=== PATIENT | male | born 1955 ===

== ENCOUNTER → 2020-02-25 10:59 | Outpatient (BNVA) | payer MEDICAID, SELFPAY | PROVIDERS: Visit Provider Orthopaedic Surgery | DX: M17.11 Unilateral primary osteoarthritis, right knee (principal) | CPT/HCPCS: 20610; 99212; J1040 ==

== ENCOUNTER → 2020-04-11 14:03 | Outpatient (BNVA) | payer MEDICAID, SELFPAY | PROVIDERS: Visit Provider Orthopaedic Surgery | DX: M17.11 Unilateral primary osteoarthritis, right knee (principal) | CPT/HCPCS: 99212; J1040 ==

== ENCOUNTER → 2020-07-19 13:43 | Outpatient (BNVA) | payer MEDICAID, SELFPAY | PROVIDERS: Visit Provider Orthopaedic Surgery | DX: M17.11 Unilateral primary osteoarthritis, right knee (principal) | CPT/HCPCS: 20610; J1040 ==

== ENCOUNTER 2020-12-07 13:51 | Outpatient (REF) | payer MEDICAID, SELFPAY ==
--- NOTE | ~2020-12-07 | XR_ITS ---
EXAMINATION: XR STANDING BILATERAL KNEES WITH 2 ADDITIONAL VIEWS, RIGHT CLINICAL INFORMATION: Right knee pain. COMPARISON: 02/27/2018 TECHNIQUE: Single standing view of both knees with 2 additional views of right knee. FINDINGS: Compared to the prior study there has been no interval change. Once again noted is narrowing of both medial compartments, right greater than left with narrowing of the lateral compartments as well with bilateral chondrocalcinosis with calcification in both the medial and lateral menisci. Degenerative changes are also seen at the patella femoral joint with narrowing and posterior osteophytes. XR/XR knee standing BI IMPRESSION: Unchanged tricompartmental degenerative changes.
--- NOTE | ~2020-12-07 | XR_ITS ---
EXAMINATION: XR STANDING BILATERAL KNEES WITH 2 ADDITIONAL VIEWS, RIGHT CLINICAL INFORMATION: Right knee pain. COMPARISON: 02/27/2018 TECHNIQUE: Single standing view of both knees with 2 additional views of right knee. FINDINGS: Compared to the prior study there has been no interval change. Once again noted is narrowing of both medial compartments, right greater than left with narrowing of the lateral compartments as well with bilateral chondrocalcinosis with calcification in both the medial and lateral menisci. Degenerative changes are also seen at the patella femoral joint with narrowing and posterior osteophytes. XR/XR knee RT 2V IMPRESSION: Unchanged tricompartmental degenerative changes.
== END 2020-12-07 13:52 | disposition home or self-care (01) ==
LOC: HO.HOSX 13:51
PROVIDERS: Visit Provider Physician Assistant
DX: M17.11 Unilateral primary osteoarthritis, right knee (principal)
CPT/HCPCS: 20610; 73560; 73565; 99212; J1040

== ENCOUNTER 2021-02-22 14:26 | Emergency (ER) | payer MEDICAID, SELFPAY ==
--- NOTE | ~2021-02-22 | XR_ITS ---
EXAMINATION: XR CHEST CLINICAL INFORMATION: Chest pain COMPARISON: None TECHNIQUE: Frontal view of the chest was obtained. FINDINGS: No significant abnormality is noted involving the heart, lungs, mediastinum, bony thorax or soft tissues. XR/XR chest 1V IMPRESSION: No acute disease.
[2021-02-22 14:39] VITALS: BP 144/67; PULSE 65; RESP 17; TEMP 36.8; O2SAT 96; BMI 30.5
--- NOTE | 2021-02-22 14:45 | ECG_ITS ---
Test Reason : CHEST PAIN Blood Pressure : / mmHG Vent. Rate : 063 BPM Atrial Rate : 063 BPM P-R Int : 138 ms QRS Dur : 078 ms QT Int : 386 ms P-R-T Axes : 024 029 038 degrees QTc Int : 395 ms Normal sinus rhythm Normal ECG No previous ECGs available Referred By: Generic ED Physician Electronically Signed By:NIESHA HOPE MD
[2021-02-22 15:29] LABS: MANUAL DIFF FLAG NO
[2021-02-22 15:30] LABS: Basophils Percent Auto 0.6 % (0-2); Eosinophils Absolute Auto 0.1 X10*3/uL (0.0-0.4); Hematocrit 41.5 % (42.0-52.0); Imm Gran Abs Auto 0.02 X10*3/uL (0.00-0.03); Imm Gran Pct Auto 0.3 % (0.0-0.4); Lymphocytes Absolute Auto 1.3 X10*3/uL (1.2-4.9); Lymphocytes Percent Auto 20.8 % (20-40); Mean Corpuscular HGB Conc 33.7 g/dl (31.0-36.0); Mean Corpuscular Hemoglobin 30.5 pg (27.0-33.0); Mean Corpuscular Volume 90.4 fL (80.0-98.0); Mean Platelet Volume 10.7 fL (9.4-12.4); Monocytes Absolute Auto 0.7 X10*3/uL (0.1-1.2); Neutrophils Absolute Auto 4.2 x10*3/uL (2.0-8.3); Neutrophils Percent Auto 65.3 % (45-73); Platelet Count 205 X10*3/uL (160-400); Red Blood Count 4.59 X10*6/uL (4.60-5.80); Red Cell Distribution Width 11.5 % (11.0-16.0); White Blood Count 6.4 X10*3/uL (4.8-10.8)
--- NOTE | 2021-02-22 15:41 | ED_ITS ---
HPI - Chest Pain General Chief Complaint: Chest Pain Stated Complaint: rt side upper back pain radiating to chest Time Seen by Provider: 02/22/21 15:30 Source: patient Mode of arrival: ambulatory Limitations: no limitations History of Present Illness HPI narrative: Patient comes emergency room complaining of right-sided chest pain and back pain for approximately 3 months. Patient states the pain is intermittent, worse with movement, nonradiating. 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 Patient states that he thinks it is musculoskeletal, but due to his age, he was concerned that he might be his heart. At this time, patient states that he is asymptomatic. Related Data Home Medications Medication Instructions Recorded Confirmed trazodone 50 mg tablet 50 mg PO BEDTIME PRN 02/25/20 ibuprofen 800 mg tablet 800 mg PO Q8H 04/11/20 Allergies Allergy/AdvReac Type Severity Reaction Status Date / Time No Known Allergies Allergy Verified 02/22/21 14:39 Review of Systems Review of Systems: Constitutional : No Weight loss, No Fever, No Chills, No Night Sweats, No Fatigue, No Malaise ENT/Mouth : No Hearing loss, No Ear Pain, No Nasal Congestion, No Sinus Pain, No Hoarseness, No sore throat, No Rhinorrhea, No Swallowing Difficulty Eyes: No Eye Pain, No Swelling, No Redness, No Foreign Body, No Discharge, No Vision Changes Cardiovascular : Complaining of right-sided Chest Pain, No SOB, No Dyspnea on Exertion, No Orthopnea, No Edema, No Palpitations Respiratory : No Cough, No Sputum, No Wheezing, No Smoke Exposure, No Dyspnea Gastrointestinal : No Nausea, No Vomiting, No Diarrhea, No Constipation, No abdominal Pain, No Hematochezia, No Melena Genitourinary : no irregular bleeding, No Dysuria, No Urinary Frequency, No Hematuria, No Urinary Incontinence, No Urgency, No Flank Pain, No Urinary Flow Changes, No Hesitancy Musculoskeletal : Complaining of upper left-sided back pain, No joint pain, No Myalgias, No Joint Swelling Skin : No Skin Lesions, No rash Neuro : No Weakness, No Numbness, No Paresthesias, No Loss of Consciousness, No Dizziness, No Headache Psych : No Anxiety/Panic, No Depression, No SI/HI/AH/VH, No Social Issues, Heme/Lymph: No Bruising, No Bleeding,No Lymphadenopathy Endocrine : No Polyuria, No Polydipsia, No Temperature Intolerance [facility] Past Medical History Medical History Localized osteoarthritis of left knee Primary localized osteoarthritis of right knee Rotator cuff impingement syndrome of left shoulder Rotator cuff impingement syndrome of right shoulder Family History Family History Father No problems noted. Mother No problems noted. Social History Social History Current occupational status: retired Current occupation: Right Handed Physical Exam Vital Signs: Vital Signs: Last Vital Signs Temp 98.2 F 02/22/21 14:39 Pulse 65 02/22/21 14:39 Resp 17 02/22/21 14:39 BP 144/67 H 02/22/21 14:39 Pulse Ox 96 02/22/21 14:39 Body Mass Index 30.5 Const: Other: Appearance: Alert. Oriented X3. No acute distress. Eyes: Pupils equal, round and reactive to light. ENT: Pharynx normal. Neck: Normal inspection. Neck supple. No lymph nodes noted. No crepitus CVS: Normal heart rate and rhythm. Pulses normal. Normal S1 and S2, reproducible chest pain to palpation Respiratory: No respiratory distress. Breath sounds normal. No Wheezing. No rales Abdomen: Soft and nontender. No rigidity. No distention. Back: Pain to palpation a around the scapular area, no cervical/thoracic/lumbar pain palpation Skin: Skin warm and dry. Normal skin color. Normal skin turgor. Extremities: No lower extremity edema. No lower extremity edema. No Lacerations. No Rash Neuro: Oriented X 3. No motor deficit. No sensory deficit. Moving all extermities. No slurred speech. Course Course Course Narrative: I discussed with the patient that he likely has musculoskeletal pain. Patient remains asymptomatic. Patient instructed to follow-up with his primary care physician. The patient keeps having chest pain, I would recommend a patient who scheduled an appointment with his PCP, will likely need a referral for a stress test MDM - Chest Pain Lab Data Result diagrams: 02/22/21 15:25 02/22/21 15:25 Labs: Lab Results 02/22/21 02/22/21 02/22/21 Range/Units 15:25 15:25 15:25 WBC 6.4 (4.8-10.8) X10*3/uL RBC 4.59 L (4.60-5.80) X10*6/uL Hgb 14.0 (14.0-18.0) g/dl Hct 41.5 L (42.0-52.0) % MCV 90.4 (80.0-98.0) fL MCH 30.5 (27.0-33.0) pg MCHC 33.7 (31.0-36.0) g/dl RDW 11.5 (11.0-16.0) % Plt Count 205 (160-400) X10*3/uL MPV 10.7 (9.4-12.4) fL Immature Gran % (Auto) 0.3 (0.0-0.4) % Neut % (Auto) 65.3 (45-73) % Lymph % (Auto) 20.8 (20-40) % [place] % (Auto) 11.0 (2-11) % Eos % (Auto) 2.0 (0-4) % Baso % (Auto) 0.6 (0-2) % Lymph # (Auto) 1.3 (1.2-4.9) X10*3/uL [place] # (Auto) 0.7 (0.1-1.2) X10*3/uL Eos # (Auto) 0.1 (0.0-0.4) X10*3/uL Baso # (Auto) 0.0 (0.0-0.2) X10*3/uL Abs Immat Gran (auto) 0.02 (0.00-0.03) X10*3/uL Absolute Neuts (auto) 4.2 (2.0-8.3) x10*3/uL Absolute Nucleated RBC 0.000 (0.0-0.012) X10*3/uL Nucleated RBC % (auto) 0.0 (0.0-0.2) /100WBC Sodium 140 (135-145) mmol/L Potassium 4.2 (3.3-5.1) mmol/L Chloride 107 (96-108) mmol/L Carbon Dioxide 27 (22-29) mmol/L Anion Gap 10 L (12-20) BUN 17 H (9-16) mg/dL Creatinine 1.06 (0.5-1.4) mg/dL Estim Creat Clear Calc 83.1 Estimated GFR > 60 Random Glucose 114 (60-115) mg/dL Calcium 9.0 (8.4-10.2) mg/dL Troponin I High Sens < 3.5 (<3.5-35.0) ng/L Discharge Plan Discharge Clinical Impression: Atypical chest pain Patient Disposition: Home, Self-Care Instructions: Chest Wall Pain (ED), Chest Pain (ED) Additional Instructions: Noted insert discharge
[2021-02-22 15:44] LABS: Anion Gap 10 (12-20); Blood Urea Nitrogen 17 mg/dL (9-16); Carbon Dioxide 27 mmol/L (22-29); Chloride 107 mmol/L (96-108); Creatinine Clr Calc Pharmacy 83.1; Estimated Glomerular Filt Rate > 60; Glucose Random 114 mg/dL (60-115); Potassium 4.2 mmol/L (3.3-5.1); Sodium 140 mmol/L (135-145)
[2021-02-22 15:51] LABS: Troponin-I High Sensitivity < 3.5 ng/L (<3.5-35.0)
[2021-02-22 16:00] VITALS: BP 157/72; PULSE 60; RESP 16
== END 2021-02-22 16:26 | disposition home or self-care (01) ==
LOC: HO.ED 16:23
PROVIDERS: Emergency Provider Emergency Medicine; PCP Internal Medicine
DX: R07.89 Other chest pain (principal)
CPT/HCPCS: 36415; 71045; 80048; 84484; 85025; 93005; 99284

== ENCOUNTER 2021-04-12 11:51 | Outpatient (REF) | payer MEDICAID, SELFPAY ==
[2021-04-12 13:51] LABS: Binax Now Covid-19 Ag Negative (Negative)
[2021-04-12 13:52] LABS: Binax Internal Control QC Valid; Binax Lot number: 9864
== END 2021-04-12 11:52 | disposition home or self-care (01) ==
LOC: HO.LAB 11:51
PROVIDERS: Visit Provider Internal Medicine
DX: Z20.822 Contact with and (suspected) exposure to COVID-19 (principal)
CPT/HCPCS: 36415; C9803

== ENCOUNTER 2021-05-23 17:00 | Outpatient (RCR) | payer MEDICAID, SELFPAY | END 2021-06-01 15:29 | disposition home or self-care (01) | LOC: HO.PT 17:00 | PROVIDERS: PCP Internal Medicine; Visit Provider Internal Medicine | DX: M53.3 Sacrococcygeal disorders, not elsewhere classified (principal) | CPT/HCPCS: 97110; 97161; 97535 ==

== ENCOUNTER 2021-08-31 09:33 | Emergency (ER) | payer MEDICAID, SELFPAY ==
[2021-08-31 09:35] VITALS: BP 163/65; PULSE 60; RESP 16; TEMP 36.8; O2SAT 93; BMI 30.7
[2021-08-31 10:13] VITALS: BP 152/82; PULSE 58; RESP 18; TEMP 36.9; O2SAT 94
--- NOTE | 2021-08-31 10:24 | ED_ITS ---
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 He reports that he is currently on another muscle relaxer that is not providing any symptomatic relief and he wants the baclofen that is why he came here. He denies any head injury, CO2 toxicity, dizziness, change in vision, fevers, neck pain/stiffness, trouble swallowing or breathing, chest pain or shortness of breath, radiation of the back pain, paresthesias, palpitations, dyspnea on exertion, orthopnea, nausea/vomiting/diarrhea constipation, black or bloody stools, hematuria, dysuria, recent travel or sick contacts, others with similar symptoms, recent falls, lower extremity edema or calf tenderness, rashes or any other symptoms complaints or concerns at this time. MD elicited complaint: back pain and back injury Pertinent past history: prior back pain Onset (ago): week(s) Timing: constant and progressively worsening Severity: moderate Similar Symptoms Previously: Yes Quality: aching, spasming and throbbing Location: right upper back (Scapular region) Radiation: none Exacerbating factors: movement Relieving factors: none Context: while lifting, turning/twisting and other (Wall hammering at work) Associated symptoms: denies other symptoms Work related injury: Yes Related Data Home Medications Medication Instructions Recorded Confirmed trazodone 50 mg tablet 50 mg PO BEDTIME PRN 02/25/20 ibuprofen 800 mg tablet 800 mg PO Q8H 04/11/20 Previous Rx's Medication Instructions Recorded baclofen 5 mg tablet 5 mg PO TID #10 tab 02/22/21 baclofen 5 mg tablet 5 mg PO TID #14 tab 08/31/21 naproxen 500 mg tablet 500 mg PO BID PRN #14 tab 08/31/21 Allergies Allergy/AdvReac Type Severity Reaction Status Date / Time No Known Allergies Allergy Verified 08/31/21 09:38 Review of Systems Review of Systems: Constitutional : No changes in activity, No lethargy, No recent prior head injury, No agitation, No increased fussiness ENT/Mouth : No Ear Pain, No Nasal discharge/drainage Eyes: No Eye Pain, No Swelling, No Redness, No Foreign Body, No Vision Changes Cardiovascular : No Chest Pain, No SOB Respiratory : No Cough Gastrointestinal : No Nausea, No Vomiting, No abdominal Pain Genitourinary : No Dysuria, No Hematuria, No Urinary Frequency, No Urinary Incontinence, No Urgency, No Flank Pain Musculoskeletal : + back pain/injury, No joint pain, No neck stiffness Skin : No lacerations Neuro : No unsteady gait, No Paresthesias, No Loss of Consciousness, No altered mental status, No dizziness, + Headache Denies past medical history of HIV, recent trauma, coagulopathy, recent spinal/ epidural procedure, new medication, URI symptoms, close contacts with similar symptoms, tick bite, or known CO2 exposure. Denies IVDU. Yes all other systems are reviewed and are negative PMFSH Past Medical History Attestation statement: The following information was validated with the patient. Medical History Localized osteoarthritis of left knee Primary localized osteoarthritis of right knee Rotator cuff impingement syndrome of left shoulder Rotator cuff impingement syndrome of right shoulder Family History Family History Father No problems noted. Mother No problems noted. Social History Social History Advance Directives: No Advance Directives Information Provided: No Current occupational status: retired Current occupation: Right Handed Physical Exam Vital Signs: Vital Signs: Last Vital Signs Temp 98.5 F 08/31/21 10:13 Pulse 58 08/31/21 10:13 Resp 18 08/31/21 10:13 BP 152/82 H 08/31/21 10:13 Pulse Ox 94 08/31/21 10:13 BMI result Body Mass Index 30.7 Vital signs have been reviewed as normal and appeared to be correct. Blood pressure 152/82. Heart rate normal. Respiration rate normal. Temperature normal. Oxygen saturation normal. Appearance: Alert. Oriented X3. No acute distress. Head: Normal external exam. Normocephalic. Atraumatic. Able to rotate head bilaterally. Eyes: PERRLA. EOMI. No nystagmus noted. Conjunctiva and sclera normal. Eyelids normal. Corneal reflex normal. ENT: EAC normal. TM's Normal. Hearing normal. Pharynx normal. Uvula midline. tongue midline. Moist mucous membranes. No trismus noted. No drooling noted. No muffled voice noted. Neck: Normal inspection. Neck supple. FROM. No adenopathy. Thyroid Normal. No meningeal signs. No neck mass noted. CVS: Normal heart rate and rhythm. Heart sound normal. No murmurs noted. Pulses normal throughout. Respiratory: No respiratory distress. Painless inspiration. Breath sounds normal. No wheezes/rales/rhonchi noted. Chest nontender. No accessory muscle usage noted or decreased air movement noted. Back: No CVA tenderness. Full range of motion noted. No obvious deformities, or edema. Mild para-spinal muscular tenderness at right scapular region/perithoracic. No mid spinal tenderness step-offs or deformities noted. Full ROM in back and lower extremities. 5/5 strength hip extension/flexion, abduction, adduction. Mild Lumbar pain with hip flexion against resistance. Straight leg raise test negative on right; Straight leg raise test negative on left; Reflexes normal ankle and knee bilaterally; EHL motor strength normal bilaterally. No rashes/lesion/induration/fluctuance or signs infection noted. Skin: Skin warm and dry. Normal skin color. Normal skin turgor. No rashes/lesions/lacerations noted. Extremities: Extremities exhibit normal range of motion. Extremities nontender. Able to shrug shoulders bilaterally and keep up against resistance. Neuro: Oriented X 3. No motor deficit. No sensory deficit. Reflexes normal. Moving all extremities. No focal motor deficits. Cranial nerves II-XI intact bilaterally. Facial strength normal. Normal cognition. Speech normal. Gait normal. Strength 5/5 throughout. No pronator drift. No tremor noted. No fasciculations noted. Muscle tone normal throughout. No asterixis noted. Nxxwhp-tt-omna test normal. Heel to joyner test normal. Tandem gait normal. Does not sway with eyes open. Romberg test negative. Rapid alternating movement upper extremity normal. Rapid alternating movement lower extremity normal. Hand drop from overhead-Mrs. face. No rigidity noted. NIHSS score 0. Course Course Course Narrative: - Patient afebrile, resting comfortably in no distress. Non-toxic appearing. Patient denies any recent trauma/injury to head. Neurological exam shows no deficits. BP WNL. Denies any changes in vision. Patient ambulates without difficulty. Given the history, and physical - most likely diagnosis: Migraine FELDMAN. Patient reports this feels like his normal migraine headaches therefore no imaging indicated at this time. Pt c likely muscular pain, but could be herniated disc. Neuro exam shows no deficits. Not c/w AAA/epidural abscess/d issection.No high risk Hx (Incont, fever, immunosupp, recent surgery/LP, coag, signif trauma, wt loss, puls mass, hx/o Ca, TB, or IVDU) to warrant MRI/CT today. Not c/w Pyelo/UTI/kidney stone/spinal fx. Not cauda equina syndrome. Imaging not currently indicated. DC c meds and f/u. Will d/c with migraine medicaiton and I also explained to the patient that he cannot take his other muscle relaxer with the baclofen and he understands and agrees with this plan and advised to follow - up with PCP. Patient demonstrated good understanding of signs and symptoms to return to ED for further testing should sx worsen. gradual onset FELDMAN. Pt states classic of previous migraine HAs. SAH: unlikely given gradual onset and similar to previous episodes Intracranial bleed: unlikely given neg trauma, neg anticoagulation Meningitis: unlikely given pt afebrile, neg stiff neck, no immune compromise. Exam without signs of meningismus Temporal arteritis: Unlikely given Neg jaw claudication, no temporal tenderness or nodularity on exam. Cerebral venous thrombosis: unlikely given no h/o hypercoaguable state, no chronic head/neck infection. MDM - Back Pain/Injury Medical Records Attestation: I reviewed the patient's medical records. Discharge Plan Discharge Clinical Impression: Headache, Muscle strain of right scapular region, Back strain Patient Disposition: Home, Self-Care Instructions: Muscle Strain (DC), General Headache (ED) Additional Instructions: You are currently on Tizanidine I explained to you that you cannot take this medication with baclofen because they do the same thing they are both muscle relaxers you can overdose if you take both medications at the same time therefore you reported that the Tizanidine was not helping your muscle strain and are requesting baclofen you cannot take both medications at the same time therefore from giving you baclofen today you need to take this alone not with TIZANIDINE! Prescriptions: New baclofen 5 mg tablet 5 mg PO TID Qty: 14 0RF naproxen 500 mg tablet 500 mg PO BID PRN (Reason: pain) Qty: 14 0RF No Action baclofen 5 mg tablet 5 mg PO TID Qty: 10 0RF Referrals: Ernesto Diallo MD [Primary Care Provider] - 2 days
== END 2021-08-31 10:41 | disposition home or self-care (01) ==
PROVIDERS: Emergency Provider Emergency Medicine Emergency Medical Services; PCP Internal Medicine
DX: S29.012A Strain of muscle and tendon of back wall of thorax, initial encounter (principal); S46.811A Strain of other muscles, fascia and tendons at shoulder and upper arm level, right arm, initial encounter; R51.9 Headache, unspecified; X50.3XXA Overexertion from repetitive movements, initial encounter; Y93.89 Activity, other specified; Y92.9 Unspecified place or not applicable; Y99.0 Civilian activity done for income or pay
CPT/HCPCS: 99283

== ENCOUNTER → 2021-12-28 11:06 | Outpatient (BNVA) | payer MEDICAID, SELFPAY | PROVIDERS: PCP Internal Medicine; Visit Provider Physician Assistant | DX: M17.11 Unilateral primary osteoarthritis, right knee (principal) | CPT/HCPCS: 20610; 99212; J1040 ==

== ENCOUNTER → 2022-01-25 13:46 | Outpatient (BNVA) | payer MEDICAID, SELFPAY | PROVIDERS: PCP Internal Medicine; Visit Provider Physician Assistant | DX: M77.8 Other enthesopathies, not elsewhere classified (principal) | CPT/HCPCS: 99212 ==

== ENCOUNTER 2023-02-06 12:39 | Outpatient (AMB) | payer MEDICAID, SELFPAY ==
--- NOTE | 2023-02-06 12:46 | MHC.OFFVIS ---
Intake Vital Signs 02/06/23 12:50 Height 5 ft 10 in Weight 216 lb BMI 31.0 Intake Visit Reasons: Ov- B/L knee pain Intake Note: Demario shay 67 year old male presents today for a follow up of bilateral knee pain, last right knee injection 12/28/21. Patient reports last injection to right knee provided relief for 4 months. Currently he has mild pain and is requesting to repeat injection. Allergies No Known Allergies Allergy (Verified 02/06/23 12:52) HPI Ov- B/L knee pain HPI Details 67-year-old male who returns to the office today for a follow-up of bilateral knee pain. He currently states he has mild pain in his right as well as left knee. He had his last right knee injection on 12/28/22 which provided him relief for about 4 months. He would like to repeat the injection. He does not have a history of diabetes. FORMERLY [facility], [facility]–1983 Medical History Localized osteoarthritis of left knee Primary localized osteoarthritis of right knee Rotator cuff impingement syndrome of left shoulder Rotator cuff impingement syndrome of right shoulder Family History Father No problems noted. Mother No problems noted. Social History Current occupational status: retired Current occupation: Right Handed Review of Systems Const All systems reviewed & are unremarkable except as noted in HPI and below Physical Exam Vital Signs: BMI result Body Mass Index 31.0 Extrem Other: Bilateral knee: Skin intact, no erythema or joint effusion. Tenderness along the medial and lateral joint line. Full ROM with crepitus. Negative James?s. No ligamentous laxity. NVI. Office Procedures Joint Injection/Drain Joint Injection/Drain Primary Site: right knee Secondary Site: left knee Prep: site was prepped using aseptic technique, ethochloride spray was applied and injection warnings given Injected: 80 mg of, DepoMedrol, with 8 mL of and 1% plain lidocaine Approach Used: anterolateral Procedure: The patient tolerated the procedure well and there was some relief with the local anesthesia Coding 94730 - Glenohumeral/Tronchanteric Bursa/Intraarticular Procedure code (CPT) selection complete Results Reviewed Results Reviewed: 02/06/23 12:58 Lidocaine HCl 2 % MPF [Xylocaine 2 % MPF] 5 ml .ROUTE .STK-MED ONE 02/06/23 12:59 methylPREDNISolone acetate [DEPO-MedroL] 80 mg .ROUTE .STK-MED ONE Assessment & Plan Assessment & Plan (1) Primary localized osteoarthritis of right knee: Code(s): M17.11 - Unilateral primary osteoarthritis, right knee (2) Osteoarthritis of left knee: Code(s): M17.12 - Unilateral primary osteoarthritis, left knee Qualifiers: Osteoarthritis type: primary Qualified Code(s): M17.12 - Unilateral primary osteoarthritis, left knee Plan We discussed options today which include steroid injection. They did consent to move forward with the bilateral knee injection, which was tolerated well. I recommended rest, ice and elevation and OTC anti-inflammatories PRN for discomfort. If symptoms persist or worsens over the next 6-8 weeks, patient will contact the office, otherwise follow-up as needed. Patient Instructions: Scribed for Lisa Al PA-C, by Michael Davis curator medical [employer], on 02/06/2023. I, Lisa Al PA-C, have personally reviewed and agree with the information entered by the scribe. Coding Level of Care Code Est Pt Level 3 (79991) Diagnoses Primary localized osteoarthritis of right knee M17.11 Primary osteoarthritis of left knee M17.12 Osteoarthritis type: primary CPT Codes Coding - Joint 7: 39192 - Glenohumeral/Tronchanteric Bursa/Intraarticular ([id number])
[2023-02-06 12:50] VITALS: BMI 31.0
== END 2023-02-06 13:18 | disposition home or self-care (01) ==
PROVIDERS: PCP Internal Medicine; Visit Provider Physician Assistant
DX: M17.0 Bilateral primary osteoarthritis of knee (principal)
CPT/HCPCS: 20610

== ENCOUNTER → 2023-02-06 12:39 | Outpatient (BNVA) | payer OTHER, MEDICAID, SELFPAY | PROVIDERS: PCP Internal Medicine; Visit Provider Physician Assistant | DX: M17.0 Bilateral primary osteoarthritis of knee (principal) | CPT/HCPCS: 20610; J1040 ==

== ENCOUNTER 2023-09-29 09:03 | Outpatient (REF) | payer OTHER, MEDICAID, SELFPAY ==
[2023-09-29 14:57] LABS: MANUAL DIFF FLAG NO
[2023-09-29 14:59] LABS: Basophils Absolute Auto 0.1 X10*3/uL (0.0-0.2); Basophils Percent Auto 0.9 % (0-2); Eosinophils Absolute Auto 0.3 X10*3/uL (0.0-0.4); Eosinophils Percent Auto 5.5 % (0-4); Hematocrit 45.6 % (42.0-52.0); Hemoglobin 15.3 g/dl (14.0-18.0); Imm Gran Abs Auto 0.04 X10*3/uL (0.00-0.03); Imm Gran Pct Auto 0.7 % (0.0-0.4); Lymphocytes Absolute Auto 1.6 X10*3/uL (1.2-4.9); Lymphocytes Percent Auto 27.9 % (20-40); Mean Corpuscular HGB Conc 33.6 g/dl (31.0-36.0); Mean Corpuscular Hemoglobin 30.2 pg (27.0-33.0); Mean Corpuscular Volume 90.1 fL (80.0-98.0); Mean Platelet Volume 11.1 fL (9.4-12.4); Monocytes Absolute Auto 0.7 X10*3/uL (0.1-1.2); Monocytes Percent Auto 12.8 % (2-11); Neutrophils Absolute Auto 2.9 x10*3/uL (2.0-8.3); Neutrophils Percent Auto 52.2 % (45-73); Platelet Count 236 X10*3/uL (160-400); Red Blood Count 5.06 X10*6/uL (4.60-5.80); Red Cell Distribution Width 11.5 % (11.0-16.0); White Blood Count 5.6 X10*3/uL (4.8-10.8)
[2023-09-29 15:34] LABS: Alanine Aminotransferase 38 U/L (0-40); Albumin Level 4.2 g/dL (3.5-5.0); Alkaline Phosphatase 61 U/L (39-117); Anion Gap 14 (12-20); Aspartate Amino Transferase 26 U/L (5-37); Blood Urea Nitrogen 18 mg/dL (9-16); Calcium 9.6 mg/dL (8.4-10.2); Carbon Dioxide 25 mmol/L (22-29); Chloride 105 mmol/L (96-108); Cholesterol 182 mg/dL (<200); Estimated Glomerular Filt Rate > 60; Glucose Random 84 mg/dL (60-115); HDL Cholesterol 41 mg/dL (>40); LDL Cholesterol Calculated 129 mg/dL (<100); Potassium 3.8 mmol/L (3.3-5.1); Sodium 140 mmol/L (135-145); Total Protein 7.6 g/dL (6.5-8.0); Triglycerides 62 mg/dL (<150)
[2023-09-29 15:50] LABS: TSH reflex Free T4 1.46 uIU/mL (0.32-4.0)
[2023-10-06 20:38] LABS: Testosterone, Free 40.7 pg/mL (35.0-155.0); Testosterone, Total 297 ng/dL (250-1100)
== END 2023-09-29 09:04 | disposition home or self-care (01) ==
LOC: HO.CHCLDS 09:03
PROVIDERS: Visit Provider Internal Medicine
DX: M54.50 Low back pain, unspecified (principal); G89.29 Other chronic pain; I10 Essential (primary) hypertension
CPT/HCPCS: 36415; 80053; 80061; 84402; 84403; 84443; 85025

== ENCOUNTER 2023-10-17 09:08 | Outpatient (AMB) | payer OTHER, MEDICAID, SELFPAY ==
--- NOTE | 2023-10-17 09:20 | A.OFFVIS_ITS ---
Vital Signs 10/17/23 09:23 Height 5 ft 10 in Weight 210 lb BMI 30.1 Intake Visit Reasons: b/l knee inj last inj: 02/06/23 Intake Note: Demario is a 68 year old male who presents today for bilateral knee injections. Last injections: 02/06/23. Patient reports he had relief all the way up to about a month ago with his last cortisone injections. Today he would like to repeat bilateral knee injections. Allergies No Known Allergies Allergy (Verified 10/17/23 09:22) Medication List - Last Reconciled 10/17/23 by Lisa Al PA-C acetaminophen ER (Mapap Arthritis Pain) 650 mg PO Q8H PRN baclofen 5 mg PO TID baclofen 5 mg PO TID baclofen 10 mg PO TID diclofenac sodium 1% 2 grams topical BID hydrochlorothiazide 12.5 mg PO DAILY ibuprofen 800 mg PO Q8H naproxen 500 mg PO BID PRN tizanidine 4 mg PO ONCE trazodone 50 mg PO BEDTIME PRN HPI HPI b/l knee inj last inj: 02/06/23: Details: 68-year-old male who returns to the office today for a follow-up of bilateral knee pain. He had his last injections on 02/06/23 which provided him relief until a month ago. He would like to repeat the injections today. [facility] Medical History Localized osteoarthritis of left knee Primary localized osteoarthritis of right knee Rotator cuff impingement syndrome of left shoulder Rotator cuff impingement syndrome of right shoulder Family History Father No problems noted. Mother No problems noted. Social History (System 08/29/23 @ 09:21 by Cindy Huddleston) Current occupational status: retired Current occupation: Right Handed Review of Systems Const All systems reviewed & are unremarkable except as noted in HPI and below Physical Exam Vital Signs: BMI result Body Mass Index 30.1 Extrem Other: Bilateral knee: Skin intact, no erythema or joint effusion. Tenderness along the medial and lateral joint line. Full ROM with crepitus. Negative James?s. No ligamentous laxity. NVI. Office Procedures Joint Injection/Drain Joint Injection/Drain Primary Site: right knee Secondary Site: left knee Prep: site was prepped using aseptic technique, ethochloride spray was applied and injection warnings given Injected: 80 mg of, DepoMedrol, with 8 mL of, 1% plain lidocaine and in the joint Approach Used: anterolateral Procedure: The patient tolerated the procedure well and there was some relief with the local anesthesia Coding 17356 - Glenohumeral/Tronchanteric Bursa/Intraarticular Procedure code (CPT) selection complete Assessment & Plan Assessment & Plan (1) Primary localized osteoarthritis of right knee: Code(s): M17.11 - Unilateral primary osteoarthritis, right knee Category: Medical (2) Osteoarthritis of left knee: Code(s): M17.12 - Unilateral primary osteoarthritis, left knee Category: Medical Qualifiers: Osteoarthritis type: primary Qualified Code(s): M17.12 - Unilateral primary osteoarthritis, left knee Plan We discussed options today, which include steroid injection. The patient did consent to move forward with the bilateral knee injection, which was tolerated well. I recommended rest, ice, and elevation and OTC anti-inflammatories as needed for discomfort. If symptoms persist or worsen over the next 6-8 weeks ?, patient will contact the office, otherwise follow-up as needed. ? Patient Instructions: Scribed for Lisa Al PA-C, by Mithc Rivas nuclear medicine medical director, on 10/17/2023 at 9:15 AM EST.? I, Lisa Al PA-C, have personally reviewed and agree with the information entered by the scribe. Coding Level of Care Code Est Pt Level 3 (05360) Diagnoses Primary localized osteoarthritis of right knee M17.11 Primary osteoarthritis of left knee M17.12 Osteoarthritis type: primary CPT Codes Coding - Joint 7: 44204 - Glenohumeral/Tronchanteric Bursa/Intraarticular ([id number])
[2023-10-17 09:23] VITALS: BMI 30.1
== END 2023-10-17 09:29 | disposition home or self-care (01) ==
PROVIDERS: PCP Internal Medicine; Visit Provider Physician Assistant
DX: M17.0 Bilateral primary osteoarthritis of knee (principal); M17.12 Unilateral primary osteoarthritis, left knee
CPT/HCPCS: 20610; 99213

== ENCOUNTER → 2023-10-17 09:08 | Outpatient (BNVA) | payer OTHER, MEDICAID, SELFPAY | PROVIDERS: PCP Internal Medicine; Visit Provider Physician Assistant | DX: M17.0 Bilateral primary osteoarthritis of knee (principal) | CPT/HCPCS: 20610; 99212; J1010 ==

== ENCOUNTER 2024-01-13 15:16 | Emergency (ER) | payer OTHER, MEDICAID, SELFPAY ==
--- NOTE | ~2024-01-13 | XR_ITS ---
EXAMINATION: XR LUMBOSACRAL SPINE CLINICAL INFORMATION: Pain COMPARISON: Number 10/01/2014 TECHNIQUE: Three views of the lumbosacral spine. FINDINGS: Mild degenerative changes are present at all levels with some minimal narrowing and some endplate osteophytes. Most narrowing is present at L3-L4 and L4-L5. When comparison is made to the 02/17/2015 study, there is been some mild progression of disease. XR/XR lumbar spine 2-3V IMPRESSION: Mild degenerative changes in the lumbar spine with some mild progression when compared to 2014. Electronically signed by: Sivakumar Smith MD 01/13/2024 04:58 PM EDT
[2024-01-13 15:28] VITALS: BP 132/71; PULSE 85; RESP 18; TEMP 36.3; O2SAT 94; BMI 30.6
--- NOTE | 2024-01-13 15:30 | ED_ITS ---
HPI - General Adult General Chief complaint: Back Pain/Injury Stated complaint: Back pain Time Seen by Provider: 01/13/24 19:48 Source: patient Mode of arrival: ambulatory Limitations: no limitations History of Present Illness HPI narrative: Patient is a 68-year-old male presents emergency department for evaluation of diffuse lower back pain left lower back worse than right. At times the buttock. Has a history as ongoing back pain over the past 3 years. 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 Believes he maintains good body mechanics, but over the past week has pain has increased. He was seen recently by his primary care doctor who has ordered for an outpatient MRI he is just waiting for this to be scheduled. He continues to use Percocet, muscle relaxers, and Lidoderm patches with some relief. He has done physical therapy in the past with some improvement in pain as well. 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 Denies fevers, chills, burning with micturition, urinary frequency/urgency/hesitancy, bladder or bowel dysfunction, numbness or tingling of the perineum or bilateral legs. Denies any recent surgical procedures, any known immune compromising conditions, personal history of cancer, or IV drug usage. Related Data Home Medications ?Medication ?Instructions ?Recorded ?Confirmed trazodone 50 mg tablet 50 mg PO BEDTIME PRN 02/25/20 10/17/23 ibuprofen 800 mg tablet 800 mg PO Q8H 04/11/20 10/17/23 acetaminophen 650 mg 650 mg PO Q8H PRN 12/28/21 10/17/23 tablet,extended release (Mapap Arthritis Pain) baclofen 10 mg tablet 10 mg PO TID 12/28/21 10/17/23 diclofenac sodium 1 % topical gel 2 g topical BID 12/28/21 10/17/23 hydrochlorothiazide 12.5 mg tablet 12.5 mg PO DAILY 12/28/21 10/17/23 tizanidine 4 mg tablet 4 mg PO ONCE 12/28/21 10/17/23 Previous Rx's ?Medication ?Instructions ?Recorded baclofen 5 mg tablet 5 mg PO TID #10 tabs 02/22/21 baclofen 5 mg tablet 5 mg PO TID back pain #14 tabs 08/31/21 naproxen 500 mg tablet 500 mg PO BID PRN pain #14 tabs 08/31/21 Allergies Allergy/AdvReac Type Severity Reaction Status Date / Time No Known Allergies Allergy Verified 01/13/24 15:30 Review of Systems Review of Systems: Yes all other systems are reviewed and are negative [facility] Past Medical History Attestation statement: The following information was validated with the patient. Source: old records reviewed Medical History Rotator cuff impingement syndrome of right shoulder Rotator cuff impingement syndrome of left shoulder Localized osteoarthritis of left knee Primary localized osteoarthritis of right knee Family History Family History Father No problems noted. Mother No problems noted. Social History Social History (System 08/29/23 @ 09:21 by Cindy Huddleston) Smoked in Last 30 Days: No Use of substances other than those prescribed or required for medical reasons: No Advance Directives: No Advance Directives Information Provided: No Current occupational status: retired Current occupation: Right Handed Physical Exam ED Vital Signs: Vital Signs - 24 hr 01/13/24 15:28 01/13/24 20:14 01/13/24 21:01 Temperature 97.3 F 97.5 F 97.5 F Pulse Rate 85 77 77 Respiratory Rate 18 18 18 Blood Pressure 132/71 134/70 134/70 Pulse Oximetry 94 95 95 Oxygen Delivery Method Room Air Room Air Room Air BMI result Body Mass Index 30.6 Appearance: Alert.?Oriented to person, place and time. No acute distress.?Normal affect. Eyes: Pupils equal, round and reactive to light.? ENT: Pharynx normal.?? Neck: Normal inspection.? Neck supple.?? CVS: Heart sounds normal. Normal heart rate and rhythm.? Pulses normal; bilateral radial pulses 2+, bilateral posterior tibial/dorsalis pedis pulses 2+.? Respiratory: No respiratory distress.? Lung sounds clear to auscultation bilaterally?? Abdomen: Soft and non-tender. Normoactive bowel sounds. No pulsatile mass.?? Skin: Skin warm and dry.? Normal skin color.? Normal skin turgor.?? Extremities: No lower extremity edema.? No calf ttp? Back: + mild paraspinal muscular tenderness from lumbar region to coccyx. No CVA tenderness. No midline spinal tenderness, step-off's, or deformity. Full ROM intact in bilateral lower extremities. Straight leg test negative on right; Straight leg test negative on left. No rashes, lesions, areas of induration or fluctuance, or signs of infection noted., Neuro: Moves all extremities spontaneously. 5/5 strength in hip extension/flexion, abduction, adduction. Sensation to light touch intact bilaterally. Patellar and Achilles reflex 2+ bilaterally. No ataxia, gait normal and steady.. No focal neuro deficits. Course Course Course Narrative: RME, this is a rapid medical exam performed by Tani Max please refer to primary provider for complete H&P- 68-year-old male presents for evaluation of lower back pain that has been present for last few months but worse over the last few days. Plan for lumbar spine x-ray. No numbness, tingling, weakness. Medical Decision Making Medical Decision Making MDM Narrative: Patient is a 68-year-old male presents emergency department for evaluation of acute on chronic lower back pain, no obvious precipitating injury but he does do some lifting for work as per HPI. He has no midline lumbar spine tenderness, step-offs, or deformities. Overall he appears well, nontoxic, afebrile. Is ambulatory with a steady gait. Pain is most consistent with muscular pain, although cannot completely exclude herniated disc he is pending an outpatient MRI. On neurological exam there are no deficits. Not consistent with spinal fracture, spinal infection, epidural abscess, AAA, epidural abscess, or dissection. No high risk past medical history including incontinence, fever, immunosuppression, recent surgery or lumbar puncture, coagulopathy, significant trauma, recent unintentional weight loss, pulsatile mass, history of cancer, history of TB, history of IV drug use that would warrant emergent MRI or CT. Not consistent with pyelonephritis, urinary tract infection, renal calculi, appendicitis, diverticulitis. On exam no concern for cauda equina syndrome. Plan for discharge home with or note, continued use of Percocet/muscle relaxer/Lidoderm patch as previously prescribed to him, and follow-up with primary care provider, and patient agreed with plan. Differential Diagnosis Differential Diagnoses: The differential diagnosis associated with the presentation includes ( see narrative above) Admission/Observation Consideration of admission/observation: Escalation of care including admission/observation considered ( see narrative above) Radiology Impression Discussion of test interpretation with radiology: I have reviewed the radiologist's reading. Radiologist Impression: XR/XR lumbar spine 2-3V IMPRESSION: Mild degenerative changes in the lumbar spine with some mild progression when compared to 2015. Independent Historian Clinical information obtained from an independent historian. History obtained from or confirmed by: Spouse External Record Review External record reviewed: Outpatient record Prescription Management I considered prescription management with: Pain Medication Discharge Plan Discharge Clinical Impression: Strain of lumbar region Patient Disposition: Home, Self-Care Instructions: Low Back Strain (ED), Lower Back Exercises (ED) Additional Instructions: As discussed continue taking your medications as prescribed including the Percocet in the muscle relaxer. You may also use the Lidoderm patches. It is very important that you follow-up with your primary care doctor and have the patient done as this will be helpful for determining if there is specific injury to your swelling and/or require surgical intervention. They mass or consider another course of physical therapy as that has been helpful for you in the past. You may return to emergency department any concerns. Prescriptions: No Action baclofen 5 mg tablet 5 mg PO TID Qty: 10 0RF baclofen 5 mg tablet 5 mg PO TID Qty: 14 0RF naproxen 500 mg tablet 500 mg PO BID PRN (Reason: pain) Qty: 14 0RF trazodone 50 mg tablet 50 mg PO BEDTIME PRN ibuprofen 800 mg tablet 800 mg PO Q8H hydrochlorothiazide 12.5 mg tablet 12.5 mg PO DAILY acetaminophen [Mapap Arthritis Pain] 650 mg tablet extended release 650 mg PO Q8H PRN baclofen 10 mg tablet 10 mg PO TID tizanidine 4 mg tablet 4 mg PO ONCE diclofenac sodium 1 % gel 2 g topical BID Referrals: Ernesto Diallo MD [Primary Care Provider] - Stand Alone Forms: Work/School Release Interventions: ED Discharge Assessment Last Done: 01/13/24 21:01 Discharge Date/Time: 01/13/24 21:01 Print Language: Bulgarian
[2024-01-13 20:14] VITALS: BP 134/70; PULSE 77; RESP 18; TEMP 36.4; O2SAT 95
--- NOTE | 2024-01-13 20:45 | PC.NURSE ---
Ben SAUSAGE SMOKER at bedside for evaluation of patient.
[2024-01-13 21:01] VITALS: BP 134/70; PULSE 77; RESP 18; TEMP 36.4; O2SAT 95
== END 2024-01-13 21:01 | disposition home or self-care (01) ==
PROVIDERS: Emergency Provider Internal Medicine; PCP Internal Medicine
DX: S39.012A Strain of muscle, fascia and tendon of lower back, initial encounter (principal); X50.0XXA Overexertion from strenuous movement or load, initial encounter; Y93.89 Activity, other specified; Y92.9 Unspecified place or not applicable; Y99.0 Civilian activity done for income or pay
CPT/HCPCS: 72100; 99283; 99284

== ENCOUNTER 2024-02-23 11:44 | Outpatient (REF) | payer OTHER, SELFPAY | END 2024-02-23 11:45 | disposition home or self-care (01) | LOC: HO.HOSX 11:44 | PROVIDERS: PCP Internal Medicine; Visit Provider Physician Assistant | DX: M25.562 Pain in left knee (principal); M17.11 Unilateral primary osteoarthritis, right knee; M17.12 Unilateral primary osteoarthritis, left knee | CPT/HCPCS: 20610; 73562; 99212; J1010; J2003 ==

== ENCOUNTER 2024-02-23 11:44 | Outpatient (AMB) | payer OTHER, SELFPAY ==
[2024-02-23 11:51] VITALS: BMI 30.6
--- NOTE | 2024-02-23 11:51 | MHC.OFFVIS ---
Vital Signs 02/23/24 11:51 Height 5 ft 10 in Weight 213 lb BMI 30.6 Intake Visit Reasons: OV b/l knee inj last inj: 10/17/23 Intake Note: Michele 68 year old male who presents today for a follow up of bilateral knee OA, last injection 10/17/23. Patient reports last injection did not provide him as much relief as it has in the past, states helped for about 4 months. He would like to repeat injections. Allergies No Known Allergies Allergy (Verified 01/13/24 15:30) Medication List - Last Reconciled 02/23/24 by Lisa Al PA-C acetaminophen ER (Mapap Arthritis Pain) 650 mg PO Q8H PRN baclofen 5 mg PO TID baclofen 5 mg PO TID baclofen 10 mg PO TID diclofenac sodium 1% 2 grams topical BID hydrochlorothiazide 12.5 mg PO DAILY ibuprofen 800 mg PO Q8H naproxen 500 mg PO BID PRN tizanidine 4 mg PO ONCE trazodone 50 mg PO BEDTIME PRN HPI HPI OV b/l knee inj last inj: 10/17/23: Details: 68-year-old male who returns to the office today for a follow-up of bilateral knee pain. He had his last injection on 10/17/23 which provided him relief for about 4 months. He would like to repeat the injection. [facility] Medical History Rotator cuff impingement syndrome of right shoulder Rotator cuff impingement syndrome of left shoulder Localized osteoarthritis of left knee Primary localized osteoarthritis of right knee Family History (Reviewed 01/25/22 @ 14:05 by Vanessa Ruiz [facility]) Father No problems noted. Mother No problems noted. Social History (System 08/29/23 @ 09:21 by Cindy Huddleston) Current occupational status: retired Current occupation: Right Handed Review of Systems Const All systems reviewed & are unremarkable except as noted in HPI and below Physical Exam Vital Signs: BMI result Body Mass Index 30.6 Extrem Other: Bilateral knee: Skin intact, no erythema or joint effusion. Tenderness along the medial and lateral joint line. Full ROM with crepitus. Negative James?s. No ligamentous laxity. NVI. Office Procedures AMB Joint Injection/Aspiration Joint Injection/Aspiration Primary Site: right knee Secondary Site: left knee Prep: site was prepped using aseptic technique, ethochloride spray was applied and injection warnings given Injected: 80 mg of, DepoMedrol, with 8 mL of, 1% plain lidocaine and in the joint Approach Used: anterolateral Procedure: The patient tolerated the procedure well and there was some relief with the local anesthesia Coding 34019 - Glenohumeral/Tronchanteric Bursa/Intraarticular Procedure code (CPT) selection complete Assessment & Plan Assessment & Plan (1) Primary localized osteoarthritis of right knee: Code(s): M17.11 - Unilateral primary osteoarthritis, right knee Category: Medical (2) Osteoarthritis of left knee: Code(s): M17.12 - Unilateral primary osteoarthritis, left knee Category: Medical Qualifiers: Osteoarthritis type: primary Qualified Code(s): M17.12 - Unilateral primary osteoarthritis, left knee Plan We discussed options today, which include steroid injection. The patient did consent to move forward with the bilateral knee injection, which was tolerated well. I recommended rest, ice, and elevation and OTC anti-inflammatories as needed for discomfort. If symptoms persist or worsens over the next 6-8 weeks, patient will contact the office, otherwise follow-up as needed. Orders: Orders XR knee RT 3V Today M17.11 - Unilateral primary osteoarthritis, right knee XR knee LT 3V Today M25.562 - Pain in left knee Patient Instructions: Scribed for Lisa Al PA-C, by Mitch Rivas director of medical staff services, on 02/23/2024 at 11:45 AM EST.? I, Lisa Al PA-C, have personally reviewed and agree with the information entered by the scribe. Coding Level of Care Code Est Pt Level 3 (46027) Complex EM visit Add On G2211 Diagnoses Primary localized osteoarthritis of right knee M17.11 Primary osteoarthritis of left knee M17.12 Osteoarthritis type: primary CPT Codes Coding - Joint 7: 53464 - Glenohumeral/Tronchanteric Bursa/Intraarticular ([id number])
== END 2024-02-23 12:33 | disposition home or self-care (01) ==
PROVIDERS: PCP Internal Medicine; Visit Provider Physician Assistant
DX: M17.0 Bilateral primary osteoarthritis of knee (principal)
CPT/HCPCS: 20610; 99213

== ENCOUNTER 2024-11-01 10:00 | Outpatient (REF) | payer OTHER, SELFPAY ==
--- OUTSIDE RECORDS SUMMARY | 2024-11-01 10:46 | XMS_ITS | Encounter Summary ---
Author Organization [employer] Address [address] [place] [address] Care Team Providers Care Welfare Adviser Name Role Phone Ernesto Diallo MD Primary Care Provider [phone] Reason for Visit * Reason Comments Med Refill Encounter Details Date Type Department Care Team ([facility] st Contact Info) Description 05/12/2024 Refill [facility] MED & PEDS [address] [place], [place] [phone] Ernesto Diallo MD [address] [place] [address] Primary insomnia Social History Tobacco Use Types Packs/Day Years Used Date Smoking Tobacco: Former Cigarettes Passive Smoke Exposure: Never Smokeless Tobacco: Never Alcohol Use Standard Drinks/Week Comments Never 0 (1 standard drink = 0.6 oz pur e alcohol) Depression Answer Date Recorded Patient Health Questionnaire-9 Score 0 06/04/2022 Housing Stability Answer Date Recorded What is your housing situation today? I have marina thomson 01/27/[address] you li ve. Do you have problems with any of the following? None of the above 01/27/2023 Food Insecurity Answer Date Recorded Within the past 12 months, y ou worried that your food would run out before you got money to buy more: Never True 01/27/2023 Within the past 12 months,th e food you bought just didn't last and you didn't have enough money to get more: Never True Transportation Answer Date Recorded In the past 12 months, has l ack of transportation kept you from medical appts, meetings, work or from getting things needed for daily living? No 01/27/2023 Utilities Answer Date Recorded In the past 12 months, has t he electric, gas, oil or water company threatened to shut off services in your home? No 01/27/2023 Depression Answer Date Recorded Patient Health Questionnaire-2 Score 0 06/04/2022 Sex and Gender Information Value Date Recorded Sex Assigned at Male 02/11/2022 10:19 AM EDT Legal Sex Male 10:19 AM EDT Gender Identity Male 02/11/2022 10:19 AM EDT Sexual Orientation Straight 02/11/2022 10 :19 AM EDT documented as of this encounter Plan of Treatment Upcoming Encounters Date Type Department Care Team (Late st Contact Info) Description 11/09/2024 11:00 AM EDT Office Visit [facility] ADULT DENTAL [address] [place] [address] Andrew Marcelo [address] [place] [address] 11/24/2024 11:00 AM EDT Clinical Support [facility] MED & PEDS [address] [place] [address] Shefali Metcalf, ANSELMO [address] [place] [address] documented as of this encounter Visit Diagnoses Diagnosis Primary insomnia Persistent disorder of initiating or maintaining sleep documented in this encounter Additional Health Concerns Assessment Noted Time PHQ-9 Depression Total Score: 0 06/04/19 23 11:26 AM EST documented as of this encounter Care Teams Welfare Adviser Relationship Specialty Start Date End Date Ernesto Diallo MD [address] [place] [address] PCP - General Internal Medicine 07/02/17 documented as of this encounter
[2024-11-01 14:08] LABS: MANUAL DIFF FLAG NO
[2024-11-01 14:18] LABS: Hematocrit 45.4 % (42.0-52.0); Hemoglobin 15.2 g/dl (14.0-18.0); Imm Gran Abs Auto 0.02 X10*3/uL (0.00-0.03); Imm Gran Pct Auto 0.4 % (0.0-0.4); Lymphocytes Absolute Auto 1.4 X10*3/uL (1.2-4.9); Mean Corpuscular HGB Conc 33.5 g/dl (31.0-36.0); Mean Corpuscular Hemoglobin 30.4 pg (27.0-33.0); Mean Corpuscular Volume 90.8 fL (80.0-98.0); NRBC Abs Auto 0.000 X10*3/uL (0.0-0.012); NRBC Pct Auto 0.0 /100WBC (0.0-0.2); Platelet Count 201 X10*3/uL (160-400); Red Blood Count 5.00 X10*6/uL (4.60-5.80); White Blood Count 4.5 X10*3/uL (4.8-10.8)
[2024-11-01 14:36] LABS: Alanine Aminotransferase 49 U/L (0-40); Albumin Level 4.3 g/dL (3.5-5.0); Alkaline Phosphatase 81 U/L (39-117); Anion Gap 12 (12-20); Aspartate Amino Transferase 31 U/L (5-37); Blood Urea Nitrogen 15 mg/dL (9-16); Calcium 8.9 mg/dL (8.4-10.2); Carbon Dioxide 26 mmol/L (22-29); Chloride 108 mmol/L (96-108); Cholesterol 171 mg/dL (<200); Estimated Glomerular Filt Rate > 60; HDL Cholesterol 37 mg/dL (>40); Potassium 4.2 mmol/L (3.3-5.1); Sodium 142 mmol/L (135-145); Total Protein 7.3 g/dL (6.5-8.0); Triglycerides 68 mg/dL (<150)
== END 2024-11-01 10:01 | disposition home or self-care (01) ==
LOC: HO.CHCLDS 10:00
PROVIDERS: Visit Provider Internal Medicine
DX: I10 Essential (primary) hypertension (principal)
CPT/HCPCS: 36415; 80053; 80061; 84443; 85025

== ENCOUNTER 2024-11-09 10:37 | Outpatient (REF) | payer OTHER, SELFPAY ==
[2024-11-09 14:06] LABS: INTERNATIONAL NORM RATIO 1.0 (0.9-1.1); Prothrombin Time 11.9 SEC (10.9-12.4)
[2024-11-09 14:38] LABS: Iron 127 mcg/dL (45-160); Percent Iron Saturation 55 % (15-50); Total Iron Binding Capacity 233 mcg/dL (228-428); Unsaturated Iron Binding 106 ug/dL
[2024-11-09 14:43] LABS: Ferritin 687 ng/mL (20-250)
[2024-11-10 03:40] LABS: HBS Num1 0.00 mIU/mL (0-7.99); ~Hepatitis B Surface Antibody NONREACTIVE (Nonreactive)
== END 2024-11-09 10:38 | disposition home or self-care (01) ==
LOC: HO.CHCLDS 10:37
PROVIDERS: Visit Provider Internal Medicine
DX: Z11.59 Encounter for screening for other viral diseases (principal); R74.01 Elevation of levels of liver transaminase levels
CPT/HCPCS: 36415; 82728; 82784; 83540; 85610; 86706

== ENCOUNTER 2025-01-03 08:14 | Outpatient (REF) | payer OTHER, SELFPAY ==
--- NOTE | ~2025-01-03 | US_ITS ---
EXAMINATION: US ABDOMEN COMPLETE WITH LIVER ELASTOGRAPHY HISTORY: transaminitis TECHNIQUE: Real-time grayscale ultrasound imaging of the abdomen was performed and images were reviewed. COMPARISON: Comparison is made with the prior examination dated 09/15/2019. FINDINGS: Liver: The right lobe of the liver measures 13.3 cm in size. The left lobe of the liver measures 10.6 cm in size. The liver demonstrates increased echotexture, consistent with steatosis. No focal mass or intrahepatic biliary ductal dilatation is identified. There is normal hepatopedal flow in the portal vein. Ultrasound elastography of the liver was performed with 10 separate measurements of the liver parenchyma with the patient in the supine position. Measurements were obtained approximately 2 cm below Angeilne's capsule and perpendicular to the capsule. The median shear wave velocity is 1.52 m/s. The interquartile range/median (IQR/median) is 0.13. Gallbladder and biliary tree: A focus of ringdown artifact is noted from the gallbladder wall, suggestive of adenomyomatosis. The gallbladder is otherwise unremarkable, without evidence of calculi, wall thickening, or pericholecystic fluid. There is no sonographic Grimes sign. The common bile duct is normal in caliber measuring 4 mm. Kidneys: The right kidney measures 12.4 cm in length. The left kidney measures 11.5 cm in length. There is an 8 mm nonobstructing calculus at the lower pole of the right kidney. No left renal calculi are identified. There is no mass or hydronephrosis. Pancreas: The pancreatic head, neck, and body are unremarkable. The pancreatic tail is obscured by bowel gas. Spleen: The spleen is normal in size and contour, measuring 8.3 cm in length. Abdominal aorta and inferior vena cava: The visualized portions of the abdominal aorta and inferior vena cava are normal in caliber. There is no free fluid in the abdomen. US/US abdomen comp w elastography IMPRESSION: 1. Hepatic steatosis. 2. Probable adenomyomatosis of the gallbladder. 3. 8 mm nonobstructing right renal calculus. The median shear wave velocity in the liver is 1.52 m/s, corresponding to a median liver stiffness of 7.07 kPa. The IQR/median value is 0.13. This is indicative of a quality data set. Findings are indicative of a low elastography value which rules out advanced chronic liver disease in asymptomatic patients. REFERENCE: Society of Radiologists in Ultrasound Liver Stiffness Thresholds (2020): LIVER STIFFNESS THRESHOLDS: *Shear wave velocity less than 1.3 m/s (Liver Stiffness equal or less than 5 kPa): High probability of being normal. *Shear wave velocity less than 1.7 m/s (Liver Stiffness less than 9 kPa): In the absence of other known clinical signs, rules out compensated advanced chronic liver disease. *Shear wave velocity between 1.7-2.1 m/s (Liver Stiffness 9-13 kPa): Suggestive of compensated advanced chronic liver disease but need further test for confirmation. *Shear wave velocity between 2.1-2.4 m/s (Liver Stiffness 13-17 kPa): Rules in compensated advanced chronic liver disease. *Shear wave velocity greater than 2.4 m/s (Liver Stiffness over 17 kPa): Suggestive of clinically significant portal hypertension. QUALITY OF DATA SET: *IQR/Median value equal or less than 0.15 implies a quality data set. *IQR/Median value over 0.15 implies a poor quality data set. SIGNIFICANT CHANGE FROM PRIOR EXAM: Significant change if liver stiffness measurement is 10% or greater from prior exam. OTHER CONSIDERATIONS: The stage of liver fibrosis may be overestimated in the setting of acute hepatitis, liver inflammation, elevated liver function tests, hepatic vascular congestion, obstructive cholestasis, non-fasting state, and infiltrative diseases such as amyloidosis and lymphoma. In some patients with NAFLD, the liver stiffness thresholds for compensated advanced chronic liver disease may be lower. In causes other than viral hepatitis and NAFLD, liver stiffness thresholds are not well established. Electronically signed by: Wong Lim MD 01/03/2025 09:13 AM EDT
--- OUTSIDE RECORDS SUMMARY | 2025-01-03 09:16 | XMS_ITS | Encounter Summary ---
Author Organization [employer] Address [address] [place] [address] Care Team Providers Care Date Puller Name Role Phone Enresto Diallo MD Primary Care Provider [phone] Reason for Visit * Reason Comments Med Refill Encounter Details Date Type Department Care Team ([facility] Contact Info) Description 05/12/2024 Refill [facility] CHC MED & PEDS [address] [place], [place] [phone] Ernesto Diallo MD [address] [place] [address] Primary insomnia Social History Tobacco Use Types [...] Care Team (Late st Contact Info) Description 02/10/2025 11:00 AM EDT Clinical Support [facility] MED & PEDS [address] [place] [address] Shefali Metcalf, ANSELMO [address] [place] [address] documented as of this encounter Visit Diagnoses Diagnosis Primary insomnia Persistent disorder of initiating or maintaining sleep documented in this encounter Additional Health Concerns Assessment Noted Time PHQ-9 Depression Total Score: 0 06/04/19 23 11:26 AM EST documented as of this encounter Care Teams Date Puller Relationship Specialty Start Date End Date Ernesto Diallo MD [address] [place] [address] PCP - General Internal Medicine 07/02/17 documented as of this encounter
--- OUTSIDE RECORDS SUMMARY | 2025-01-03 09:17 | XMS_ITS | Encounter Summary ---
Author Organization [employer] Address [address] [place] [address] Care Team Providers Care Manager Of Maintenance Name Role Phone Ernesto Diallo MD Primary Care Provider [phone] Encounter Details Date Type Department Care Team ([facility] st Contact Info) Description 09/29/2023 Orders Only [facility] CHC MED & PEDS [address] [place], [place] [phone] Ernesto Diallo MD [address] [place] [address] Social History Tobacco Use Types Packs/Day Years Used Date Smoking Tobacco: Former Cigarettes Passive Smoke Exposure: Never Smokeless Tobacco: Never Alcohol Use Standard Drinks/Week Comments Never 0 (1 standard drink = 0.6 oz pur e alcohol) Depression Answer Date Recorded Patient Health Questionnaire-9 Score 0 06/04/2022 Housing Stability Answer Date Recorded What is your housing situation today? I have marinabrisa thomson 01/27/[address] you [...] Description 02/10/2025 11:00 AM EDT Clinical Support [facility] MED & PEDS [address] [place] [address] Shefali Metcalf, ANSELMO [address] [place] [address] documented as of this encounter Visit Diagnoses Not on filedocumented in this encounter Additional Health Concerns Assessment Noted Time PHQ-9 Depression Total Score: 0 06/04/19 23 11:26 AM EST documented as of this encounter Care Teams Manager Of Maintenance Relationship Specialty Start Date End Date Ernesto Diallo MD [address] [place] [address] PCP - General Internal Medicine 07/02/17 documented as of this encounter
--- OUTSIDE RECORDS SUMMARY | 2025-01-03 09:17 | XMS_ITS | Encounter Summary ---
Author Organization [employer] Address [address] [place] [address] Care Team Providers Care Software Verification Engineer Name Role Phone Ernesto Diallo MD Primary Care Provider [phone] Encounter Details Date Type Department Care Team ([facility] st Contact Info) Description 12/06/2024 Orders Only [facility]S [address] [place], [place] [phone] Ernesto Diallo MD [address] [place] [address] Chronic right-sided low back pain without sciatica; Chronic bilateral low back pain without sciatica; Chronic right-sided low back pain without sciatica; Sacroiliac joint pain; Essential hypertension; Other male erectile dysfunction; Primary insomnia Social History Tobacco Use Types Packs/Day Years Used Date Smoking Tobacco: Former Cigarettes Passive Smoke Exposure: Never Smokeless Tobacco: Never Alcohol Use Standard Drinks/Week Comments Never 0 (1 standard drink = 0.6 oz pur e alcohol) Depression Answer Date Recorded Patient Health Questionnaire-9 Score 0 06/14/2024 Patient Health Questionnaire-9 Score 0 06/14/2024 Last PHQ-9: Questionnaire Data Not on file 0 06/14/2024 Housing Stability Answer Date Recorded What is your housing situation today? I have marina thomson 06/14/[address] you li ve. Do you have problems with any of the following? None of the above 06/14/2024 Food Insecurity Answer Date Recorded Within the past 12 months, y ou worried that your food would run out before you got money to buy more: Never True 06/14/2024 Within the past 12 months,th e food you bought just didn't last and you didn't have enough money to get more: Never True 06/2024 Transportation Answer Date Recorded In the past 12 months, has l ack of transportation kept you from medical appts, meetings, work or from getting things needed for daily living? No 06/14/2024 Utilities Answer Date Recorded In the past 12 months, has t he electric, gas, oil or water company threatened to shut off services in your home? No 06/14/2024 Depression Answer Date Recorded Patient Health Questionnaire-2 Score 0 06/14/2024 Internet Access Answer Date Recorded Internet Access Q1 Yes 06/14/2024 Internet Access Q2 Not on file 06/14/2024 Sex and Gender Information Value Date Recorded Sex Assigned at Male 02/11/2022 10:19 AM EDT Legal Sex Male 10:19 AM EDT Gender Identity Male 02/11/2022 10:19 AM EDT Sexual Orientation Straight 02/11/2022 10 :19 AM EDT documented as of this encounter Plan of Treatment Upcoming Encounters Date Type Department Care Team ([facility] st Contact Info) Description 02/10/2025 11:00 AM EDT Clinical Support [facility] MED & PEDS [address] [place] [address] Shefali Metcalf, ANSELMO [address] [place] [address] documented as of this encounter Visit Diagnoses Diagnosis Chronic right-sided low back pain without sciatica Chronic bilateral low back pain without sciatica Sacroiliac joint pain Disorders of sacrum Essential hypertension Unspecified essential hypertension Other male erectile dysfunction Primary insomnia Persistent disorder of initiating or maintaining sleep documented in this encounter Additional Health Concerns Assessment Noted Time PHQ-9 Depression Total Score: 0 06/15/19 25 11:19 AM EST documented as of this encounter Care Teams Software Verification Engineer Relationship Specialty Start Date End Date Ernesto Diallo MD [address] [place] [address] PCP - General Internal Medicine 07/02/17 documented as of this encounter
--- OUTSIDE RECORDS SUMMARY | 2025-01-03 09:17 | XMS_ITS | Encounter Summary ---
Author Organization [employer] Address [address] [place] [address] Care Team Providers Care Work Checker Name Role Phone Ernesto Diallo MD Primary Care Provider [phone] Encounter Details Date Type Department Care Team ([facility] st Contact Info) Description 01/15/2024 Orders Only [facility] [address] [place], [place] [phone] Ernesto Diallo MD [address] [place] [address] Sacroiliac joint pain (Primary Dx); Chronic right-sided low back pain without sciatica Social History Tobacco Use Types Packs/Day Years [...] Description 02/10/2025 11:00 AM EDT Clinical Support [facility] [address] [place] [address] Shefali Metcalf, RN [address] [place] [phone] documented as of this encounter Visit Diagnoses Diagnosis Sacroiliac joint pain- Primary Disorders of sacrum Chronic right-sided low back pain without sciatica documented in this encounter Additional Health Concerns Assessment Noted Time PHQ-9 Depression Total Score: 0 06/04/19 23 11:26 AM EST documented as of this encounter Care Teams Work Checker Relationship Specialty Start Date End Date Ernesto Diallo MD [address] [place] [address] PCP - General Internal Medicine 07/02/17 documented as of this encounter
--- OUTSIDE RECORDS SUMMARY | 2025-01-03 09:17 | XMS_ITS | Clinical Summary ---
Author Organization [employer] Address [address] [place] [address] [address] [place] [address] Care Team Providers Care Railcar Carpenter Name Role Phone Ernesto Diallo MD Primary Care Provider [phone] Allergies No known active allergies Medications Heating Pad padsIndications :Chronic right-sided low back pain without sciatica To use daily on the low back 1 each 023 Active Blood Pressure kitIndications: Essential hypertension To check the BP daily 1 kit 023 Active Diclofenac Sodium 1 % gel Apply 2 g topically 2 times daily. 100 g 024 Active Blood Pressure kitIndications: Essential hypertension To check the BP 3 times a week. 1 kit 024 Active hydrocortisone (Anusol-HC) 2.5 % rectal creamIndication s:Grade II hemorrhoids Insert into the rectum 2 times daily. 28 g 025 Active Blood Pressure kitIndications: Essential hypertension To check the BP every other day. 1 kit 025 Active naloxone (Narcan) 4 mg/0.1 mL nasal spray Administer 1 spray (4 mg) into affected nostril(s) if needed for opioid reversal. May repeat every 2-3 minutes if needed, alternating nostrils, until medical assistance becomes available. 2 each 2 025 2025 Active oxyCODONE-aceta minophen (Percocet) 5-325 MG tabletIndicatio ns:Chronic right-sided low back pain without sciatica Take 1 tablet by mouth every 12 (twelve) hours if needed for severe pain. 28 tablet 025 Active tiZANidine (Zanaflex) 4 MG tabletIndicatio ns:Chronic right-sided low back pain without sciatica,Chroni c bilateral low back pain without sciatica TAKE 1 TABLET BY MOUTH EVERY 8 HOURS NEEDED FOR MUSCLE SPASM 30 tablet Active diclofenac (Cataflam) 50 MG tabletIndicatio ns:Chronic right-sided low back pain without sciatica Take 1 tablet (50 mg) by mouth 2 times daily. 60 tablet Active lidocaine (Lidoderm) 5 % patchIndication s:Chronic right-sided low back pain without sciatica,Sacroi liac joint pain Apply 1 patch topically Once per day. Remove & discard patch within 12 hours or as directed by MD. 30 patch 1 Active lisinopril (Prinivil) 20 MG tabletIndicatio ns:Essential hypertension Take 1 tablet (20 mg) by mouth Once per day. 30 tablet 11 025 2025 Active sildenafil (Viagra) 50 MG tabletIndicatio ns:Other male erectile dysfunction Take 1 tablet (50 mg) by mouth if needed each day for erectile dysfunction. Approximately 1 hour before sexual activity. 8 tablet 3 Active traZODone (Desyrel) 50 MG tabletIndicatio ns:Primary insomnia Take 1-2 tablets (50-100 mg) by mouth at bedtime. 90 tablet 025 Active acetaminophen (Tylenol 8 Hour) 650 MG ER tabletIndicatio ns:Chronic right-sided low back pain without sciatica,Sacroi liac joint pain Take 1 tablet (650 mg) by mouth every 8 (eight) hours if needed for mild pain. 90 tablet 3 025 Active acetaminophen (Tylenol 8 Hour) 650 MG ER tablet Take 1 tablet by mouth every 8 (eight) hours if needed. 022 2024 Discontinued(R eorder (will not trigger notification to Pharmacy)) sildenafil (Viagra) 50 MG tabletIndicatio ns:Other male erectile dysfunction Take 1 tablet (50 mg) by mouth if needed each day for erectile dysfunction. Approximately 1 hour before sexual activity. 8 tablet 3 024 2024 Discontinued(R eorder (will not trigger notification to Pharmacy)) lidocaine (Lidoderm) 5 % patchIndication s:Chronic right-sided low back pain without sciatica,Sacroi liac joint pain Apply 1 patch topically Once per day. Remove & discard patch within 12 hours or as directed by . 30 patch 1 024 2024 Discontinued(R eorder (will not trigger notification to Pharmacy)) lisinopril (Prinivil) 20 MG tabletIndicatio ns:Essential hypertension Take 1 tablet (20 mg) by mouth Once per day. 30 tablet 11 025 2024 Discontinued(R eorder (will not trigger notification to Pharmacy)) tiZANidine (Zanaflex) 4 MG tabletIndicatio ns:Chronic right-sided low back pain without sciatica,Chroni c bilateral low back pain without sciatica TAKE 1 TABLET BY MOUTH EVERY 8 HOURS NEEDED FOR MUSCLE SPASM 30 tablet 025 2024 Discontinued(R eorder (will not trigger notification to Pharmacy)) traZODone (Desyrel) 50 MG tabletIndicatio ns:Primary insomnia Take 1-2 tablets (50-100 mg) by mouth at bedtime. 90 tablet 025 2024 Discontinued(R eorder (will not trigger notification to Pharmacy)) diclofenac (Cataflam) 50 MG tabletIndicatio ns:Chronic right-sided low back pain without sciatica Take 1 tablet (50 mg) by mouth 2 times daily. 60 tablet 025 2024 Discontinued(R eorder (will not trigger notification to Pharmacy)) Active Problems Problem Noted Date Diagnosed Date Long-term current use of opiate analgesic 2024 Essential hypertension 07/11/2022 Sacroiliac joint pain 09/05/2017 Right-sided low back pain without sciatica 02/10 Pain in joint involving lower leg 04/22/2011 Encounters Date Type Department Care Team Description 12/06/2024 Orders Only [facility] [address] [place] [address] Ernesto Diallo MD Chronic right-sided low back pain without sciatica; Chronic bilateral low back pain without sciatica; Chronic right-sided low back pain without sciatica; Sacroiliac joint pain; Essential hypertension; Other male erectile dysfunction; Primary insomnia 11/24/2024 11:00 AM EDT Clinical Support [facility] [address] [place] [address] Shefali Metcalf RN Chronic bilateral low back pain without sciatica 11/24/2024 Refill [facility] [address] [place] [address] Ernesto Diallo MD Chronic right-sided low back pain without sciatica; Chronic bilateral low back pain without sciatica; Primary insomnia; Chronic right-sided low back pain without sciatica 11/24/2024 Travel 11/09/2024 11:00 AM EDT Office Visit [facility] [address] [place] [address] Andrew Marcelo 11/02/2024 Results Follow-Up [facility] [address] [place] [address] Megan Valencia RN Comprehensive Metabolic Panel, Lipid Panel, Standard, TSH W/Reflex to FT4, CBC auto differential 11/01/2024 Orders Only [facility] [address] [place] [address] Ernesto Diallo MD Essential hypertension (Primary Dx); Transaminitis 10/26/2024 Refill [facility] [address] [place] [address] Ernesto Diallo MD Chronic right-sided low back pain without sciatica 10/24/2024 Refill [facility] [address] [place] [id number] Ernesto Diallo MD Primary insomnia 10/14/2024 4:00 PM EDT Office Visit [facility] [address] [place] [address] Ernesto Diallo MD Essential hypertension (Primary Dx); Chronic right-sided low back pain without sciatica; Chronic bilateral low back pain without sciatica; Other infective acute otitis externa of left ear 10/14/2024 Travel 10/14/2024 Telephone [facility] [address] [place] [address] Ernesto Diallo MD chart prep 10/11/2024 10:00 AM EDT Office Visit [facility] [address] [place] [address] Driss Diallo Dental calculus (Primary Dx) 10/08/2024 Refill [facility] [address] [place] [address] Shefali Metcalf RN Chronic right-sided low back pain without sciatica 10/08/2024 Telephone [facility] [address] [place] [address] Ernesto Diallo MD Med Refill from Last 3 Months Immunizations Immunization Administration Dates Next Due Influenza Injectable Quadriv alant Preservative Free IIV4 MDCK 12/27/2019,01/28/2017 Influenza injectable quadriv alent IIV4 with preservative 01/01/2018,01/04/2016,01/03/2015 Influenza injectable quadriv alent preservative free 12/28/2021,01/12/2021,01/29/2019 Influenza, Split (incl. dash fied surface antigen) 01/07/2013 Influenza, seasonal, injecta ble, preservative free 05/19/2015 Pneumococcal Conjugate PCV 20 08/25/2023 TD (adult), 2 Lf tetanus tox oid, preservative free, adsorbed 11/11/2016 Td (adult), 5 Lf tetanus tox oid, preservative free, adsorbed 04/14/2012 Tdap 08/25/2023 Social History Tobacco Use Types Packs/Day Years Used Date Smoking Tobacco: Former Cigarettes Passive Smoke Exposure: Never Smokeless Tobacco: Never Tobacco Cessation:Counseling Given: Not Answered Alcohol Use Standard Drinks/Week Comments Never 0 [...] Orientation Straight 02/11/2022 10 :19 AM EDT Last Filed Vital Signs Vital Sign Reading Time Taken Comments Blood Pressure 118/78 11/09/2024 10:48 AM EDT Pulse 72 10/14/2024 4:13 PM EDT Temperature 36.8 C (98.2 F) 10/14/2024 4:04 PM EDT Respiratory Rate 18 10/14/2024 4:04 PM EDT Oxygen Saturation 98% 10/14/2024 4:04 PM EDT Inhaled Oxygen Concentration - - Weight 96.2 kg (212 lb) 10/14/2024 4:04 PM EDT Height 175.3 cm (5' 9 ) 10/14/2024 4:04 PM EDT Body Mass Index 31.31 10/14/2024 4:04 PM EDT Plan of Treatment Upcoming Encounters Date Type Department Care Team (Late st Contact Info) Description 02/10/2025 11:00 AM EDT Clinical Support [facility] [address] [place] [address] Shefali Metcalf, RN [address] [facility] [place] [address] Health Maintenance Due Date Last Done Comments CT Colonography 1955 Colonoscopy 1955 FIT 1955 Sigmoidoscopy 1955 Zoster Vaccines (1 of 2) 2007 Dental X-Ray: Bitewings 02/18/2014 02/17/2013, 11/19 Dental Oral Exam 10/01/2017 04/01/2017, , 01/25/2014, Additional history exists Dental X-Ray: Full Mouth 10/26/2018 016, 02/17/2013, 11/19/2012 FOBT 08/31/2024 09/01/2023 COVID-19 Vaccine ( season) 2024 02/15/2022, 04/27/2021, 09/08/2020, Additional history exists Influenza Vaccine (#1) 2024 , 12/10/2022, 12/28/2021, Additional history exists Dental Prophylaxis 04/13/2025 10/11/2024, 0 06/08/2015, 06/17/2014, Additional history exists Alcohol/Substance Use Screening 06/14/2025 06/14/2024 Depression Screening 06/14/2025 06/14/2024, 06/15/19 SDOH Screening 06/14/2025 06/14/2024 Tobacco Screening 10/14/2025 10/14/2024 Colorectal Cancer Screening 08/31/2026 FIT DNA/Cologuard 08/31/2026 09/01/2023 Lipid Panel 11/01/2029 11/01/2024, 09/12, 03/15/2022, Additional history exists RSV Patients and Patients Aged 60 years or older (1 - 1-dose 75+ series) 2032 DTaP/Tdap/Td Vaccines (2 - Td or Tdap) 08/24/2033 08/25/2023, 11/11/2016, 04/14/2012 Hepatitis C Screening Completed 03/15/2022 Pneumococcal Vaccine: 50+ Years Completed 08/25/2023 HIB Vaccines Aged Out No longer eligi ble based on patient's age to complete this topic HPV Vaccines Aged Out No longer eligi ble based on patient's age to complete this topic Hepatitis A Vaccines Aged Out No long er eligible based on patient's age to complete this topic Hepatitis B Vaccines Aged Out No long er eligible based on patient's age to complete this topic IPV Vaccines Aged Out No longer eligi ble based on patient's age to complete this topic Meningococcal B Vaccine Aged Out No l onger eligible based on patient's age to complete this topic Meningococcal Vaccine Aged Out No alvaro selvin eligible based on patient's age to complete this topic RSV under 20 months Aged Out No longe r eligible based on patient's age to complete this topic Rotavirus Vaccines Aged Out No longer eligible based on patient's age to complete this topic Procedures Procedure Name Priority Date/Time Associated Diagnosis Comments US ABDOMEN COMPLETE WITH ELASTOGRAPHY Routine 01/03/2025 8:26 AM EDT Transaminitis POCT NANCI-14 URINE DRUG SCREEN Routine 11/24/2024 11:13 AM EDT Chronic bilateral low back pain without sciatica LIMITED ORAL EVALUATION - PROBLEM FOCUSED Routine 11/09/2024 11:00 AM EDT IRON AND TOTAL IRON BINDING CAPACITY Routine 11/09/2024 10:39 AM EDT Transaminitis FERRITIN Routine 11/09/2024 10:39 AM EDT Transaminitis PROTHROMBIN TIME-INR Routine 11/09/2024 10:39 AM EDT Transaminitis IMMUNOGLOBULINS, QUANTITATIVE, IGA, IGG, IGM Routine 11/09/2024 10:39 AM EDT Transaminitis HEPATITIS B SURFACE ANTIBODY, QUALITATIVE Routine 11/09/2024 10:39 AM EDT Transaminitis CBC WITH AUTO DIFFERENTIAL Routine 11/01/2024 10:03 AM EDT Essential hypertension TSH W/REFLEX TO FT4 Routine 11/01/2024 1 0:03 AM EDT Essential hypertension LIPID PANEL, STANDARD Routine 11/01/2024 10:03 AM EDT Essential hypertension COMPREHENSIVE METABOLIC PANEL Routine 11/01/2024 10:03 AM EDT Essential hypertension INTRAORAL - PERIAPICAL EACH ADDITIONAL RADIOGRAPHIC IMAGE Routine 10/11/2024 10:00 AM EDT INTRAORAL - PERIAPICAL EACH ADDITIONAL RADIOGRAPHIC IMAGE Routine 10/11/2024 10:00 AM EDT ORAL HYGIENE INSTRUCTIONS Routine 10/11/2024 10:00 AM EDT INTRAORAL - PERIAPICAL FIRST RADIOGRAPHIC IMAGE Routine 10/11/2024 10:00 AM EDT Full PROPHYLAXIS - ADULT Routine 10/11/2024 10:00 AM EDT CASE PRESENTATION, DETAILED AND EXTENSIVE TREATMENT PLANNING Routine 10/11/2024 10:00 AM EDT LAB COLOGUARD COLON CANCER SCREEN Routine 09/01/2023 2:20 PM EDT Screening for colon cancer HEPATITIS C AB W/REFL TO HCV RNA, QN, PCR Routine 03/15/2022 8:57 AM EST PERIODIC ORAL EVALUATION - ESTABLISHED PATIENT Routine 04/01/2017 12:00 AM EST PANORAMIC RADIOGRAPHIC IMAGE Routine 10/26/2015 12:00 AM EDT INTRAORAL - COMPLETE SERIES OF RADIOGRAPHIC IMAGES Routine 02/17/2013 12:00 AM EST from Last 3 Months or Most Recently Relevant to Health Maintenance Results * US Abdomen Comp w elastography (01/03/2025 8:26 AM EDT) Anatomical Region Laterality Modality Abdomen Ultrasound 01/03/2025 8:26 AM EDT Narrative 01/03/2025 9:15 AM EDT [address] [address] Ultrasound Report Signed Patient: Demario Ramesh MR#: [id number] 1 : 1955 Acct:[id number] Age/Sex: 69 / M ADM Date: 01/03/25 Loc: HO.US Attending Dr: Ernesto Diallo MD Ordering Physician: Ernesto Diallo MD Date of Service: 01/03/25 Procedure(s): US abdomen comp w elastography Accession Number(s): [id number] cc: Ernesto Diallo MD Reason for Exam: transaminitis EXAMINATION: US ABDOMEN COMPLETE WITH LIVER ELASTOGRAPHY HISTORY: transaminitis TECHNIQUE: Real-time grayscale ultrasound imaging of the abdomen was performed and images were reviewed. COMPARISON: Comparison is made with the prior examination dated 09/15/2019. FINDINGS: Liver: The right lobe of the liver measures 13.3 cm in size. The left lobe of the liver measures 10.6 cm in size. The liver demonstrates increased echotexture, consistent with steatosis. No focal mass or intrahepatic biliary ductal dilatation is identified. There is normal hepatopedal flow in the portal vein. Ultrasound elastography of the liver was performed with 10 separate measurements of the liver parenchyma with the patient in the supine position. Measurements were obtained approximately 2 cm below Angeline's capsule and perpendicular to the capsule. The median shear wave velocity is 1.52 m/s. The interquartile range/median (IQR/median) is 0.13. Gallbladder and biliary tree: A focus of ringdown artifact is noted from the gallbladder wall, suggestive of adenomyomatosis. The gallbladder is otherwise unremarkable, without evidence of calculi, wall thickening, or pericholecystic fluid. There is no sonographic Grimes sign. The common bile duct is normal in caliber measuring 4 mm. Kidneys: The right kidney measures 12.4 cm in length. The left kidney measures 11.5 cm in length. There is an 8 mm nonobstructing calculus at the lower pole of the right kidney. No left renal calculi are identified. There is no mass or hydronephrosis. Pancreas: The pancreatic head, neck, and body are unremarkable. The pancreatic tail is obscured by bowel gas. Spleen: The spleen is normal in size and contour, measuring 8.3 cm in length. Abdominal aorta and inferior vena cava: The visualized portions of the abdominal aorta and inferior vena cava are normal in caliber. There is no free fluid in the abdomen. US/US abdomen comp w elastography IMPRESSION: 1. Hepatic steatosis. 2. Probable adenomyomatosis of the gallbladder. 3. 8 mm nonobstructing right renal calculus. The median shear wave velocity in the liver is 1.52 m/s, corresponding to a median liver stiffness of 7.07 kPa. The IQR/median value is 0.13. This is indicative of a quality data set. Findings are indicative of a low elastography value which rules out advanced chronic liver disease in asymptomatic patients. REFERENCE: Society of Radiologists in Ultrasound Liver Stiffness Thresholds (2020): LIVER STIFFNESS THRESHOLDS: *Shear wave velocity less than 1.3 m/s (Liver Stiffness equal or less than 5 kPa): High probability of being normal. *Shear wave velocity less than 1.7 m/s (Liver Stiffness less than 9 kPa): In the absence of other known clinical signs, rules out compensated advanced chronic liver disease. *Shear wave velocity between 1.7-2.1 m/s (Liver Stiffness 9-13 kPa): Suggestive of compensated advanced chronic liver disease but need further test for confirmation. *Shear wave velocity between 2.1-2.4 m/s (Liver Stiffness 13-17 kPa): Rules in compensated advanced chronic liver disease. *Shear wave velocity greater than 2.4 m/s (Liver Stiffness over 17 kPa): Suggestive of clinically significant portal hypertension. QUALITY OF DATA SET: *IQR/Median value equal or less than 0.15 implies a quality data set. *IQR/Median value over 0.15 implies a poor quality data set. SIGNIFICANT CHANGE FROM PRIOR EXAM: Significant change if liver stiffness measurement is 10% or greater from prior exam. OTHER CONSIDERATIONS: The stage of liver fibrosis may be overestimated in the setting of acute hepatitis, liver inflammation, elevated liver function tests, hepatic vascular congestion, obstructive cholestasis, non-fasting state, and infiltrative diseases such as amyloidosis and lymphoma. In some patients with NAFLD, the liver stiffness thresholds for compensated advanced chronic liver disease may be lower. In causes other than viral hepatitis and NAFLD, liver stiffness thresholds are not well established. Electronically signed by: Wong Lim MD 01/03/2025 09:13 AM EDT Dictated By: Wong Lim MD Signed By: <Electronically signed by Wong Lim MD in OV> 01/03/2513 DD/ 5 TD/TT: 01/03/25845 Pin Inserter Regulator: Procedure Note Donotuseinterpreter, Image - 01/03/[address] [address] Ultrasound Report Signed Patient: Demario Ramesh [facility]#: [id number] 1 : 7Acct:[id number] Age/Sex: 69 / MADM Date: 01/03/25 Loc: HO.US Attending Dr: Ernesto Diallo MD Ordering Physician: Ernesto Diallo MD Date of Service: 01/03/25 Procedure(s): US abdomen comp w elastography Accession Number(s): [id number] cc: Ernesto Diallo MD Reason for Exam: transaminitis EXAMINATION: US ABDOMEN COMPLETE WITH LIVER ELASTOGRAPHY HISTORY: transaminitis TECHNIQUE: Real-time grayscale ultrasound imaging of the abdomen was performed and images were reviewed. COMPARISON: Comparison is made with the prior examination dated 09/15/2019. FINDINGS: Liver: The right lobe of the liver measures 13.3 cm in size. The left lobe of the liver measures 10.6 cm in size. The liver demonstrates increased echotexture, consistent with steatosis. No focal mass or intrahepatic biliary ductal dilatation is identified. There is normal hepatopedal flow in the portal vein. Ultrasound elastography of the liver was performed with 10 separate measurements of the liver parenchyma with the patient in the supine position. Measurements were obtained approximately 2 cm below Angeline's capsule and perpendicular to the capsule. The median shear wave velocity is 1.52 m/s. The interquartile range/median (IQR/median) is 0.13. Gallbladder and biliary tree: A focus of ringdown artifact is noted from the gallbladder wall, suggestive of adenomyomatosis. The gallbladder is otherwise unremarkable, without evidence of calculi, wall thickening, or pericholecystic fluid. There is no sonographic Grimes sign. The common bile duct is normal in caliber measuring 4 mm. Kidneys: The right kidney measures 12.4 cm in length. The left kidney measures 11.5 cm in length. There is an 8 mm nonobstructing calculus at the lower pole of the right kidney. No left renal calculi are identified. There is no mass or hydronephrosis. Pancreas: The pancreatic head, neck, and body are unremarkable. The pancreatic tail is obscured by bowel gas. Spleen: The spleen is normal in size and contour, measuring 8.3 cm in length. Abdominal aorta and inferior vena cava: The visualized portions of the abdominal aorta and inferior vena cava are normal in caliber. There is no free fluid in the abdomen. US/US abdomen comp w elastography IMPRESSION: 1. Hepatic steatosis. 2. Probable adenomyomatosis of the gallbladder. 3. 8 mm nonobstructing right renal calculus. The median shear wave velocity in the liver is 1.52 m/s, corresponding to a median liver stiffness of 7.07 kPa. The IQR/median value is 0.13. This is indicative of a quality data set. Findings are indicative of a low elastography value which rules out advanced chronic liver disease in asymptomatic patients. REFERENCE: Society of Radiologists in Ultrasound Liver Stiffness Thresholds (2019): LIVER STIFFNESS THRESHOLDS: *Shear wave velocity less than 1.3 m/s (Liver Stiffness equal or less than 5 kPa): High probability of being normal. *Shear wave velocity less than 1.7 m/s (Liver Stiffness less than 9 kPa): In the absence of other known clinical signs, rules out compensated advanced chronic liver disease. *Shear wave velocity between 1.7-2.1 m/s (Liver Stiffness 9-13 kPa): Suggestive of compensated advanced chronic liver disease but need further test for confirmation. *Shear wave velocity between 2.1-2.4 m/s (Liver Stiffness 13-17 kPa): Rules in compensated advanced chronic liver disease. *Shear wave velocity greater than 2.4 m/s (Liver Stiffness over 17 kPa): Suggestive of clinically significant portal hypertension. QUALITY OF DATA SET: *IQR/Median value equal or less than 0.15 implies a quality data set. *IQR/Median value over 0.15 implies a poor quality data set. SIGNIFICANT CHANGE FROM PRIOR EXAM: Significant change if liver stiffness measurement is 10% or greater from prior exam. OTHER CONSIDERATIONS: The stage of liver fibrosis may be overestimated in the setting of acute hepatitis, liver inflammation, elevated liver function tests, hepatic vascular congestion, obstructive cholestasis, non-fasting state, and infiltrative diseases such as amyloidosis and lymphoma. In some patients with NAFLD, the liver stiffness thresholds for compensated advanced chronic liver disease may be lower. In causes other than viral hepatitis and NAFLD, liver stiffness thresholds are not well established. Electronically signed by: Wong Lim MD 01/03/2025 09:13 AM EDT Dictated By: Wong Lim MD Signed By: <Electronically signed by Wong Lim MD in OV> 01/03/25912 DD/ 5 TD/TT: 01/03/2546 Pin Inserter Regulator: Ernesto Diallo MD IM US PROCEDURES Edited Re sult - Final * (ABNORMAL) POCT NANCI-14 Urine Drug Screen (11/24/2024 11:13 AM EDT) THC Negative Negative Cocaine Screen, Urine Negative Negative Opiate Screen, Urine Negative Negative Methamphetamine Screen Urine Negative Negative Amphetamine Screen, Urine Negative Negative Benzodiazepines Screen, Urine Negative Negative Barbiturate Screen, Urine Negative Negative Methadone Screen, Urine Negative Negative Buprenophine Screen, Urine Negative Negative TCA, Urine Negative Negative MDMA Urine Negative Negative ng/mL Oxycodone Screen, Urine Positive(A) Negative Phencyclidine (PCP), Urine Negative Negative Propoxyphene, Urine Negative Negative Fentanyl, Urine Negative Negative Urine Urine specimen obtained by clean catch procedure / Unknown 11/24/2024 11:13 AM EDT Narrative Shefali Metcalf RN - 11/24/2024 11:13 AM EDT Internal Pass Control Lot# [id number] Exp: 02-11-26 Ernesto Diallo MD POINT OF CARE TEST ENTER/ED IT ORDERABLES Final Result * (ABNORMAL) Iron And Total Iron Binding Capacity (11/09/2024 10:39 AM EDT) Iron 127 45 - 160 mcg/dL [facility] Total Iron Binding Capacity 233 228 - 428 mcg/dL [facility] Percent Iron Saturation 55(H) 15 - 50 % [facility] Unsaturated Iron Binding 106 ug/dL [facility] Blood Venous blood specimen / Unknown 11/09/2024 10:39 AM EDT 11/09/2024 2:04 PM EDT us Ernesto Diallo MD LAB BLOOD ORDERABLES Final Result Performing Organization Address [facility] Co de Phone Number [facility] [address] [place] [phone] * Hepatitis B Surface Antibody, Qualitative (11/09/2024 10:39 AM EDT) ~Hepatitis B Surface Antibody NONREACTIVE Nonreactive [facility] Comment:Nonreactive: < 8.00 mIU/mL Blood Venous blood specimen / Unknown 11/09/2024 10:39 AM EDT 11/09/2024 2:04 PM EDT us Ernesto Diallo MD LAB BLOOD ORDERABLES Final Result Performing Organization Address [facility] Co de Phone Number [facility] [address] [place] [phone] * Prothrombin Time-INR (11/09/2024 10:39 AM EDT) Prothrombin Time 11.9 10.9 - 12.4 SEC [facility] INTERNATIONAL NORM RATIO 1.0 0.9 - 1.1 [facility] Comment:INTERNATIONAL NORMAL IZED RATIO (INR) REFERENCE RANGES Reference RangeFor patients not on anticoagulant therapy: 0.9 - 1.1INR ranges for oral anticoagulanttherapy:For prevention and treatment of venous thrombosis and pulmonary embolism: 2.0 - 3.0For acute myocardial infarction with aspirin therapy: 2.0 - 3.0For acute myocardial infarction without aspirin therapy: 3.0 - 4.0For patients with mechanical prosthetic heart valves: 2.5 - 3.5 Blood Venous blood specimen / Unknown 11/09/2024 10:39 AM EDT 11/09/2024 1:53 PM EDT us Ernesto Diallo MD LAB BLOOD ORDERABLES Final Result Performing Organization Address [facility] Co de Phone Number [facility] [address] [place] [phone] * (ABNORMAL) Immunoglobulins, Quantitative, IgA, IgG, IgM (11/09/2024 10:39 AM EDT) IMMUNOGLOBULIN G 1274 600 - 1540 mg/dL [facility] IMMUNOGLOBULIN A 458(A) 70 - 320 mg/dL [facility] Immunoglobulin M 106 50 - 300 mg/dL [facility] Comment:THIS TEST WAS PERFOR MED AT:[employer] [place] [phone] GONZALEZ MD Blood Venous blood specimen / Unknown 11/09/2024 10:39 AM EDT 11/09/2024 2:04 PM EDT Ernesto Diallo MD LAB BLOOD ORDERABLES Final Result Performing Organization Address [facility]/ZIP Co de Phone Number [facility] [address] [place] [phone] * (ABNORMAL) Ferritin (11/09/2024 10:39 AM EDT) Ferritin 687(H) 20 - 250 ng/mL [facility] Blood Venous blood specimen / Unknown 11/09/2024 10:39 AM EDT 11/09/2024 2:04 PM EDT Ernesto Diallo MD LAB BLOOD ORDERABLES Final Result Performing Organization Address City/[facility]/ZIP Co de Phone Number [facility] [address] [place] [phone] * TSH W/Reflex to FT4 (11/01/2024 10:03 AM EDT) TSH reflex Free T4 1.01 0.32 - 4.0 uIU/mL [facility] Blood Venous blood specimen / Unknown 11/01/2024 10:03 AM EDT 11/01/2024 2:03 PM EDT us Ernesto Diallo MD LAB BLOOD ORDERABLES Final Result [facility] [address] [place], [place] [phone] * (ABNORMAL) CBC auto differential (11/01/2024 10:03 AM EDT) White Blood Count 4.5(L) 4.8 - 10.8 X10*3/uL [facility] Red Blood Count 5.00 4.60 - 5.80 X10*6/uL [facility] Hemoglobin 15.2 14.0 - 18.0 g/dl [facility] Hematocrit 45.4 42.0 - 52.0 % [facility] Mean Corpuscular Volume 90.8 80.0 - 98.0 fL [facility] Mean Corpuscular Hemoglobin 30.4 27.0 - 33.0 pg [facility] Mean Corpuscular HGB Conc 33.5 31.0 - 36.0 g/dl [facility] Red Cell Distribution Width 11.4 11.0 - 16.0 % [facility] Platelet Count 201 160 - 400 X10*3/uL [facility] Mean Platelet Volume 11.5 9.4 - 12.4 fL [facility] Neutrophils Percent Auto 47.5 45 - 73 % [facility] Imm Gran Pct Auto 0.4 0.0 - 0.4 % [facility] Lymphocytes Percent Auto 31.4 20 - 40 % [facility] Monocytes Percent Auto 14.5(H) 2 - 11 % [facility] Eosinophils Percent Auto 5.1(H) 0 - 4 % [facility] Basophils Percent Auto 1.1 0 - 2 % [facility] NRBC Pct Auto 0.0 0.0 - 0.2 /100WBC [facility] Neutrophils Absolute Auto 2.1 2.0 - 8.3 x10*3/uL [facility] Imm Gran Abs Auto 0.02 0.00 - 0.03 X10*3/uL [facility] Lymphocytes Absolute Auto 1.4 1.2 - 4.9 X10*3/uL [facility] Monocytes Absolute Auto 0.7 0.1 - 1.2 X10*3/uL [facility] Eosinophils Absolute Auto 0.2 0.0 - 0.4 X10*3/uL [facility] Basophils Absolute Auto 0.1 0.0 - 0.2 X10*3/uL [facility] NRBC Abs Auto 0.000 0.0 - 0.012 X10*3/uL [facility] Blood Venous blood specimen / Unknown 11/01/2024 10:03 AM EDT 11/01/2024 2:03 PM EDT us Ernesto Diallo MD LAB BLOOD ORDERABLES Final Result [facility] [address] [place] [phone] * (ABNORMAL) Lipid Panel, Standard (11/01/2024 10:03 AM EDT) Triglycerides 68 <150 mg/dL [facility] Comment:Desirable Triglyceri de: less than 150 mg/dLBorderline High Triglyceride 150-199 mg/dLHigh Triglyceride: 200-499 mg/dLVery High Triglyceride: greater than or equal to 5OO mg/dL Cholesterol 171 <200 mg/dL [facility] Comment:Desirable Cholestero l: less than 200 mg/dLBorderline High Cholesterol: 200-239 mg/dLHigh Cholesterol: greater than 239 mg/dL LDL Cholesterol Calculated 121(H) <100 mg/dL [facility] Comment:Desirable LDL: less than 100 mg/dLNear Optimal/Above Optimal LDL: 110- 129 mg/dLBorderline High LDL: 130-159 mg/dLHigh LDL: 160-189 mg/dLVery High LDL: greater than or equal to 190 mg/dL HDL Cholesterol 37(L) >40 mg/dL [facility] Comment:Desirable HDL: great er than 40 mg/dL Note: This HDL assay may give artificially low results in patients with liver disease. Blood Venous blood specimen / Unknown 11/01/2024 10:03 AM EDT 11/01/2024 2:03 PM EDT us Ernesto Diallo MD LAB BLOOD ORDERABLES Final Result [facility] [address] [place] [phone] * (ABNORMAL) Comprehensive Metabolic Panel (11/01/2024 10:03 AM EDT) Sodium 142 135 - 145 mmol/L [facility] Potassium 4.2 3.3 - 5.1 mmol/L [facility] Chloride 108 96 - 108 mmol/L [facility] Carbon Dioxide 26 22 - 29 mmol/L [facility] Anion Gap 12 12 - 20 [facility] Urea Nitrogen (BUN) 15 9 - 16 mg/dL [facility] Creatinine, Serum 1.07 0.5 - 1.4 mg/dL [facility] Estimated Glomerular Filt Rate >60 [facility] Comment:Chronic Kidney Disea se: Estimated GFR < 60 mL/min/1.81j3Fbmgax Kidney Disease: Estimated GFR < 15 mL/min/1.73m2 Glucose 94 60 - 115 mg/dL [facility] Calcium 8.9 8.4 - 10.2 mg/dL [facility] Bilirubin, Total 1.5(H) 0.0 - 1.0 mg/dL [facility] Aspartate Amino Transferase 31 5 - 37 U/L [facility] Alanine Aminotransferase 49(H) 0 - 40 U/L [facility] Total Protein 7.3 6.5 - 8.0 g/dL [facility] Albumin Level 4.3 3.5 - 5.0 g/dL [facility] Alkaline Phosphatase 81 39 - 117 U/L [facility] Blood Venous blood specimen / Unknown 11/01/2024 10:03 AM EDT 11/01/2024 2:03 PM EDT us Ernesto Diallo MD LAB BLOOD ORDERABLES Final Result [facility] [address] [place] [phone] [phone] * Cologuard?? colon cancer screening (09/01/2023 2:20 PM EDT) Cologuard Result Negative Negative 09/05/19 1:32 AM EDT [facility] (CLIA #:[id number]) Comment: NEGATIVE TEST RESULT. A negative Cologuard result indicates a low likelihood that a colorectal cancer (CRC) or advanced adenoma (adenomatous polyps with more advanced pre-malignant features) is present. The chance that a person with a negative Cologuard test has a colorectal cancer is less than 1 in 1500 (negative predictive value >99.9%) or has an advanced adenoma is less than 5.3% (negative predictive value 94.7%). These data are based on a prospective cross-sectional study of 10,000 individuals at average risk for colorectal cancer who were screened with both Cologuard and colonoscopy. (Mendel Calvillo. et al, N Engl J Med 2014;370(14):9710-9517) The normal value (reference range) for this assay is negative. COLOGUARD RE-SCREENING RECOMMENDATION: Periodic colorectal cancer screening is an important part of preventive healthcare for asymptomatic individuals at average risk for colorectal cancer. Following a negative Cologuard result, the [place] [employer] and U.S. Multi-Society Task Force screening guidelines recommend a Cologuard re-screening interval of 3 years. References: [place] [employer] Guideline for Colorectal Cancer Screening: https://www.cancer.org/cancer/ohdsd-pdykkh-nqyucp/uiqjtywbm-yvyuvsjjl-dsmdnmu/ac s-rec ommendations.html.; Hipolito DK, Stewart CR, Gayle DesaiK, Colorectal Cancer Screening: Recommendations for Physicians and Patients from the U.S. Multi-Society Task Force on Colorectal Cancer Screening , Am J Gastroenterology 2017; 112:6081-1935. TEST DESCRIPTION: Composite algorithmic analysis of stool DNA-biomarkers with hemoglobin immunoassay. Quantitative values of individual biomarkers are not reportable and are not associated with individual biomarker result reference ranges. Cologuard is intended for colorectal cancer screening of adults of either sex, 45 years or older, who are at average-risk for colorectal cancer (CRC). Cologuard has been approved for use by the U.S. FDA. The performance of Cologuard was established in a cross sectional study of average-risk adults aged 50-84. Cologuard performance in patients ages 45 to 49 years was estimated by sub-group analysis of near-age groups. Colonoscopies performed for a positive result may find as the most clinically significant lesion: colorectal cancer [4.0%], advanced adenoma (including sessile serrated polyps greater than or equal to 1cm diameter) [20%] or non- advanced adenoma [31%]; or no colorectal neoplasia [45%]. These estimates are derived from a prospective cross-sectional screening study of 10,000 individuals at average risk for colorectal cancer who were screened with both Cologuard and colonoscopy. (Mendel Vega et al, N Engl J Med 2014;370(14):1215-6209.) Cologuard may produce a false negative or false positive result (no colorectal cancer or precancerous polyp present at colonoscopy follow up). A negative Cologuard test result does not guarantee the absence of CRC or advanced adenoma (pre-cancer). The current Cologuard screening interval is every 3 years. ([place] [employer] and U.S. Multi-Society Task Force). Cologuard performance data in a 10,000 patient pivotal study using colonoscopy as the reference method can be accessed at the following location: www.e-SENS/results. Additional description of the Cologuard test process, warnings and precautions can be found at www.Marketooguard.com. Stool specimen (specimen) 09/01/2023 2:20 PM EDT 09/02/2023 9:24 AM EDT us Ernesto Diallo MD LAB MOLECULAR DIAGNOSTICS O RDERABLES Final Result [facility] (CLIA #:[id number]) [address] [place] [place] [address], * Hepatitis C Antibody with Reflex to HCV, RNA, Quantitative, Real-Time PCR (03/15/2022 8:57 AM EST) Hepatitis C Antibody NON-REACT LUAN NON-REACT LUAN [facility] [place] [facility] Index 0.08 <1.00 [facility] [place] [facility] Comment: HCV antibody was non-reactive. There is no laboratory evidence of HCV infection. In most cases, no further action is required. However, if recent HCV exposure is suspected, a test for HCV RNA (test code 80398) is suggested. For additional information please refer to http://education.Company/faq/YAB05u4 (This link is being provided for informational/ educational purposes only.) 03/15/2022 8:57 AM EST 03/15/2022 8:58 AM EST Narrative [facility] - 03/15/2022 10:58 PM EST FASTING:YES COLLECTION KIT GIVEN TO PATIENT. PATIENT ADVISED TO RETURN. FASTING: YES us Ernesto Diallo MD LAB BLOOD ORDERABLES Final Result [facility] [address], [place] [address] [facility] [place] [facility] [address], [facility] [address] from Last 3 Months or Most Recently Relevant to Health Maintenance Insurance [facility] OPTIONS (HMO D-SNP) [employer] [id number] DENTAL - [facility] Care Teams Railcar Carpenter Relationship Specialty Start Date End Date Ernesto Diallo MD [address] [place] [phone] PCP - General Internal Medicine 07/02/17
--- OUTSIDE RECORDS SUMMARY | 2025-01-03 09:17 | XMS_ITS | Encounter Summary ---
Author Organization [employer] Address [address] [facility] [address] [place] [address] Care Team Providers Care Claims Adjuster Name Role Phone Ernesto Diallo MD Primary Care Provider [phone] Encounter Details Date Type Department Care Team ([facility] st Contact Info) Description 02/09/2024 Orders Only [facility]EDS [address] [place], [place] [phone] Ernesto Diallo MD [address] [place] [address] Essential hypertension (Primary Dx) Social History Tobacco Use Types Packs/Day Years [...] Description 02/10/2025 11:00 AM EDT Clinical Support [facility] [address] [place] [address] Shefali Metcalf RN [address] [place] [address] documented as of this encounter Procedures Procedure Name Priority Date/Time Associated Diagnosis Comments XR KNEE 3 VIEWS RIGHT Routine 02/23/2024 12:16 PM EST XR KNEE 3 VIEWS LEFT Routine 02/23/2024 12:16 PM EST documented in this encounter Results * XR Knee 3 Views Right (02/23/2024 12:16 PM EST) Anatomical Region Laterality Modality Lower Extremities, Knee Right Radiogra phic Imaging 02/23/2024 12:1 6 PM EST Narrative 04/26/2024 8:36 AM EST [facility] [address] [place] [address] Drive [address] [place] [address] XRay Report Signed Patient: Demario Ramesh MR#: [id number] 1 : 1955 Acct:[id number] Age/Sex: 68 / M ADM Date: 02/23/24 Loc: HO.HOSX Attending Dr: Lisa Al PA-C Ordering Physician: Lisa Al PA-C Date of Service: 02/23/24 Procedure(s): XR knee RT 3V Accession Number(s): [id number] cc: Ernesto Diallo MD; Lisa Al PA-C EXAMINATION: XR KNEE RIGHT CLINICAL INFORMATION: Unilateral primary osteoarthritis, right knee M17.11. COMPARISON: XR Right knee 12/07/2020 TECHNIQUE: Lateral and patella view of right knee and upright view of right and left knee. FINDINGS: Right knee: Chondrocalcinosis. Mild to moderate osteoarthritis medial compartment joint space narrowing and marginal osteophytes. Mild osteoarthritis of lateral compartment with marginal osteophytes without joint space narrowing. Mild osteoarthritis of patellofemoral compartment with marginal osteophytes without joint space narrowing. No effusion. Limited left knee upright: chondrocalcinosis. Mild osteoarthritis of the medial compartment with marginal osteophytes and mild joint space narrowing. Lateral compartment unremarkable. XR/XR knee RT 3V IMPRESSION: Right knee: Chondrocalcinosis and osteoarthritis Left knee: Chondrocalcinosis and osteoarthritis Electronically signed by: Ariel Perez MD 04/26/2024 08:33 AM EST Dictated By: Ariel Perez MD Signed By: <Electronically signed by Ariel Perez MD in OV> 04/26/24 0833 DD/ 1216 TD/TT: 02/23/24 1220 Medication Technician: LATISHA Procedure Note Donotuseinterpreter, Image - 04/26/2024 [facility] [address] [place] [address] Drive [address] [place] [address] XRay Report Signed Patient: Demario Ramesh [facility]#: [id number] 1 : 1955cct:[id number] Age/Sex: 68 / MADM Date: 02/23/24 Loc: HO.HOSX Attending Dr: Lisa Al PA-C Ordering Physician: Lisa Al PA-C Date of Service: 02/23/24 Procedure(s): XR knee RT 3V Accession Number(s): [id number] cc: Ernesto Diallo MD; Lisa Al PA-C EXAMINATION: XR KNEE RIGHT CLINICAL INFORMATION: Unilateral primary osteoarthritis, right knee M17.11. COMPARISON: XR Right knee 12/07/2020 TECHNIQUE: Lateral and patella view of right knee and upright view of right and left knee. FINDINGS: Right knee: Chondrocalcinosis. Mild to moderate osteoarthritis medial compartment joint space narrowing and marginal osteophytes. Mild osteoarthritis of lateral compartment with marginal osteophytes without joint space narrowing. Mild osteoarthritis of patellofemoral compartment with marginal osteophytes without joint space narrowing. No effusion. Limited left knee upright: chondrocalcinosis. Mild osteoarthritis of the medial compartment with marginal osteophytes and mild joint space narrowing. Lateral compartment unremarkable. XR/XR knee RT 3V IMPRESSION: Right knee: Chondrocalcinosis and osteoarthritis Left knee: Chondrocalcinosis and osteoarthritis Electronically signed by: Ariel Perez MD 04/26/2024 08:33 AM EST RP Dictated By: Ariel Perez MD Signed By: <Electronically signed by Ariel Perez MD inOV> 04/26/24 0833 DD/ 1216 TD/TT: 02/23/24 1220 Medication Technician: LATISHA [facility] External Provider IMG XR PROCEDURES Edited Result - Final * XR Knee 3 Views Left (02/23/2024 12:16 PM EST) Anatomical Region Laterality Modality Lower Extremities, Knee Left Radiogra phic Imaging 02/23/2024 12:1 6 PM EST Narrative 04/26/2024 8:34 AM EST [facility] [address] [place] [address] XRay Report Signed Patient: Demario Ramesh MR#: [id number] 1 : 1955 Acct:[id number] Age/Sex: 68 / M ADM Date: 02/23/24 Loc: [facility] Attending Dr: Lisa Al PA-C Ordering Physician: Lisa Al PA-C Date of Service: 02/23/24 Procedure(s): XR knee LT 3V Accession Number(s): [id number] cc: Ernesto Diallo MD; Lisa Al PA-C EXAMINATION: XR KNEE LEFT CLINICAL INFORMATION: Pain in left knee M25.562. COMPARISON: Bilateral knee series 02/23/2024 TECHNIQUE: Patella and lateral view of the left knee FINDINGS: Mild osteoarthritis of the patellofemoral compartment. Cannot assess medial or lateral compartment on lateral view only. Ossification adjacent to the tibial tubercle compatible with old Zeigler-Schlatter's disease.. XR/XR knee LT 3V IMPRESSION: Limited exam 1. Mild osteoarthritis. 2. 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 Electronically signed by: Ariel Perez MD 04/26/2024 08:31 AM EST Dictated By: Ariel Perez MD Signed By: <Electronically signed by Ariel Perez MD in OV> 04/26/24 0831 DD/ 1216 TD/TT: 02/23/24 1220 Medication Technician: LATISHA Procedure Note Donotuseinterpreter, Image - 04/26/2024 [facility] [address] [place] [address] Drive [address] [place] [address] XRay Report Signed Patient: Demario Ramesh [facility]#: [id number] 1 : 1955cct:[id number] Age/Sex: 68 / MADM Date: 02/23/24 Loc: [facility] Attending Dr: Lisa Al PA-C Ordering Physician: Lisa Al PA-C Date of Service: 02/23/24 Procedure(s): XR knee LT 3V Accession Number(s): [id number] cc: Ernesto Diallo MD; Lisa Al PA-C EXAMINATION: XR KNEE LEFT CLINICAL INFORMATION: Pain in left knee M25.562. COMPARISON: Bilateral knee series 02/23/2024 TECHNIQUE: Patella and lateral view of the left knee FINDINGS: Mild osteoarthritis of the patellofemoral compartment. Cannot assess medial or lateral compartment on lateral view only. Ossification adjacent to the tibial tubercle compatible with old Zeigler-Schlatter's disease.. XR/XR knee LT 3V IMPRESSION: Limited exam 1. Mild osteoarthritis. 2. 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 Electronically signed by: Ariel Perez MD 04/26/2024 08:31 AM EST RP Dictated By: Ariel Perez MD Signed By: <Electronically signed by Ariel Perez MD inOV> 04/26/24 0831 DD/ 1216 TD/TT: 02/23/24 1220 Medication Technician: LATISHA [facility] External Provider IMG XR PROCEDURES Edited Result - Final documented in this encounter Visit Diagnoses Diagnosis Essential hypertension- Primary Unspecified essential hypertension documented in this encounter Additional Health Concerns Assessment Noted Time PHQ-9 Depression Total Score: 0 06/04/19 23 11:26 AM EST documented as of this encounter Care Teams Claims Adjuster Relationship Specialty Start Date End Date Ernesto Diallo MD [address] [place] [phone] PCP - General Internal Medicine 07/02/17 documented as of this encounter
--- OUTSIDE RECORDS SUMMARY | 2025-01-03 09:17 | XMS_ITS | Encounter Summary ---
Author Organization [employer] Address [address] [place] [address] [address] [place] [address] Care Team Providers Care Product Inspection Supervisor Name Role Phone Ernesto Diallo MD Primary Care Provider [phone] Reason for Visit * Reason Comments Med Refill Encounter Details Date Type Department Care Team ([facility] Contact Info) Description 10/27/2022 Refill [facility] [address] [place], [place] [phone] Ernesto Diallo MD [address] [place] [address] HTN (hypertension), benign Social History Tobacco Use Types Packs/Day Years Used Date Smoking Tobacco: Former Cigarettes Passive Smoke Exposure: Never Smokeless Tobacco: Never Alcohol Use Standard Drinks/Week Comments Never 0 (1 standard drink = 0.6 oz pur e alcohol) Depression Answer Date Recorded Patient Health Questionnaire-9 Score 0 06/04/2022 Depression Answer Date Recorded Patient Health Questionnaire-2 Score 0 06/04/2022 Sex and Gender Information Value Date Recorded Sex Assigned at Male 02/11/2022 10:19 AM EDT Legal Sex Male 10:19 AM EDT Gender Identity Male 02/11/2022 10:19 AM EDT Sexual Orientation Straight 02/11/2022 10 :19 AM EDT documented as of this encounter Plan of Treatment Upcoming Encounters Date Type Department Care Team ([facility] Contact Info) Description 02/10/2025 11:00 AM EDT Clinical Support [facility] PEDS [address] [place], [place] [phone] Shefali Metcalf RN [address] [place] [address] documented as of this encounter Visit Diagnoses Diagnosis HTN (hypertension), benign Essential hypertension, benign documented in this encounter Additional Health Concerns Assessment Noted Time PHQ-9 Depression Total Score: 0 06/04/19 23 11:26 AM EST documented as of this encounter Care Teams Product Inspection Supervisor Relationship Specialty Start Date End Date Ernesto Diallo MD [address] [facility] [place] [address] PCP - General Internal Medicine 07/02/17 documented as of this encounter
--- OUTSIDE RECORDS SUMMARY | 2025-01-03 09:17 | XMS_ITS | Encounter Summary ---
Author Organization [employer] Address [address] [place] [address] Care Team Providers Care Hospitalist Medical Director Name Role Phone Ernesto Diallo MD Primary Care Provider [phone] Reason for Visit * Reason Comments Med Refill Encounter Details Date Type Department Care Team ([facility] Contact Info) Description 12/11/2022 Refill [facility] MED & PEDS [address] [place] [address] Ernesto Diallo MD [address] [place] [address] Primary insomnia Social History Tobacco Use Types [...] Upcoming Encounters Date Type Department Care Team ([facility] Contact Info) Description 02/10/2025 11:00 AM EDT Clinical Support [facility] MED & PEDS [address] [place] [address] Shefali Metcalf, ANSELMO [address] [place] [address] documented as of this encounter Visit Diagnoses Diagnosis Primary insomnia Persistent disorder of initiating or maintaining sleep documented in this encounter Additional Health Concerns Assessment Noted Time PHQ-9 Depression Total Score: 0 06/04/19 23 11:26 AM EST documented as of this encounter Care Teams Hospitalist Medical Director Relationship Specialty Start Date End Date Ernseto Diallo MD [address] [place] [address] PCP - General Internal Medicine 07/02/17 documented as of this encounter
--- OUTSIDE RECORDS SUMMARY | 2025-01-03 09:17 | XMS_ITS | Encounter Summary ---
Author Organization [employer] Address [address] [place] [address] 7 [place] [address] Care Team Providers Care Mine Boss Name Role Phone Ernesto Diallo MD Primary Care Provider [phone] Encounter Details Date Type Department Care Team ([facility] Contact Info) Description 12/10/2022 Orders Only [facility] [address] [place] [address] Ernesto Diallo MD [address] [place] [address] Social History Tobacco Use Types Packs/Day Years [...] Upcoming Encounters Date Type Department Care Team ([facility] Contact Info) Description 02/10/2025 11:00 AM EDT Clinical Support [facility] [address] [place] [address] Shefali Metcalf, ANSELMO [address] [place], [place] [phone] documented as of this encounter Visit Diagnoses Not on filedocumented in this encounter Additional Health Concerns Assessment Noted Time PHQ-9 Depression Total Score: 0 06/04/19 23 11:26 AM EST documented as of this encounter Care Teams Mine Boss Relationship Specialty Start Date End Date Ernesto Diallo MD [address] [place] [phone] PCP - General Internal Medicine 07/02/17 documented as of this encounter
--- OUTSIDE RECORDS SUMMARY | 2025-01-03 09:17 | XMS_ITS | Encounter Summary ---
Author Organization [employer] Address [address] [facility] 7t [place] [address] Care Team Providers Care Experimental Rocket Sled Mechanic Name Role Phone Ernesto Diallo MD Primary Care Provider [phone] Encounter Details Date Type Department Care Team ([facility] st Contact Info) Description 02/13/2023 Orders Only [facility] MED & PEDS [address] [place], [place] [phone] Ernesto Diallo MD 505 [place] [address] Social History Tobacco Use Types Packs/Day Years [...] AM EDT documented as of this encounter Functional Status * Over the last 2 weeks, how often have you been bothered by any of the following problems? Question Answer Date of Assessment Author Feeling nervous, anxious, or on edge 0 02/13/2023 10:13 AM EDT Shefali Metcalf RN Not being able to stop or co ntrol worrying 0 02/13/2023 10:13 AM EDT Shefali Metcalf RN Worrying too much about diff erent things 0 02/13/2023 10:13 AM EDT Shefali Metcalf RN Trouble relaxing 0 02/13/2023 10:13 AM EDT Shefali Metcalf RN Being so restless that it is hard to sit still 0 02/13/2023 10:13 AM JORGE AT Shefali Metcalf RN Becoming easily annoyed or irritable 0 02/13/2023 10:13 AM EDT Shefali Metcalf RN Feeling afraid as if somethi ng awful might happen 0 02/13/2023 10:13 AM EDT Shefali Metcalf RN BRIAN-7 Total Score 0 02/13/2023 10:13 AM EDT Shefali Metcalf RN documented as of this encounter Plan of Treatment Upcoming Encounters Date Type Department Care Team (Late st Contact Info) Description 02/10/2025 11:00 AM EDT Clinical Support [facility] MED & PEDS [address] [place] [address] Shefali Metcalf RN 505 [place] [address] documented as of this encounter Visit Diagnoses Not on filedocumented in this encounter Additional Health Concerns Assessment Noted Time PHQ-9 Depression Total Score: 0 06/04/19 23 11:26 AM EST documented as of this encounter Care Teams Experimental Rocket Sled Mechanic Relationship Specialty Start Date End Date Ernesto Diallo MD [address] [place] [phone] PCP - General Internal Medicine 07/02/17 documented as of this encounter
--- OUTSIDE RECORDS SUMMARY | 2025-01-03 09:17 | XMS_ITS | Encounter Summary ---
Author Organization [employer] Address [address] [place] [address] 7 [place] [address] Care Team Providers Care Insight Director Name Role Phone Ernesto Diallo MD Primary Care Provider [phone] Reason for Referral * Imaging (Routine) - Closed Specialty Diagnoses / Procedures Referred By Contac t Referred To Contact Radiology Diagnoses Transaminitis Procedures US Abdomen Comp w elastography Ernesto Diallo MD [address] [place] [address] Phone: tel: fax: [address] Phone: tel: fax: Referral ID Status Reason Start Date Expiration Date Visits Re quested Visits Authorized [id number] Closed 11/01/2024 11/01/2025 1 1 Encounter Details Date Type Department Care Team (Late st Contact Info) Description 11/01/2024 Orders Only [facility] MED & PEDS [address] [place] [address] Ernesto Diallo MD [address] [place], [place] [phone] Essential hypertension (Primary Dx); Transaminitis Social History Tobacco Use Types Packs/Day Years [...] Description 02/10/2025 11:00 AM EDT Clinical Support [facility] MED & PEDS [address] [place] [address] Shefali Metcalf, ANSELMO [address] [place] [address] Scheduled Orders Name Type Priority Associated Diagnoses Orde r Schedule Smooth Muscle Antibody with Reflex to Titer Lab Routine Transaminitis Expected: 11/01/2024 (Approximate), Expires: 11/01/2025 Alpha 1 Antitrypsin Lab Routine Transaminitis Expected: 11/01/2024 (Approximate), Expires: 11/01/2025 documented as of this encounter Procedures Procedure Name Priority Date/Time Associated Diagnosis Comments US ABDOMEN COMPLETE WITH ELASTOGRAPHY Routine 01/03/2025 8:26 AM EDT Transaminitis IRON AND TOTAL IRON BINDING CAPACITY Routine 11/09/2024 10:39 AM EDT Transaminitis HEPATITIS B SURFACE ANTIBODY, QUALITATIVE Routine 11/09/2024 10:39 AM EDT Transaminitis PROTHROMBIN TIME-INR Routine 11/09/2024 10:39 AM EDT Transaminitis IMMUNOGLOBULINS, QUANTITATIVE, IGA, IGG, IGM Routine 11/09/2024 10:39 AM EDT Transaminitis FERRITIN Routine 11/09/2024 10:39 AM EDT Transaminitis TSH W/REFLEX TO FT4 Routine 11/01/2024 1 0:03 AM EDT Essential hypertension CBC WITH AUTO DIFFERENTIAL Routine 11/01/2024 10:03 AM EDT Essential hypertension LIPID PANEL, STANDARD Routine 11/01/2024 10:03 AM EDT Essential hypertension COMPREHENSIVE METABOLIC PANEL Routine 11/01/2024 10:03 AM EDT Essential hypertension documented in this encounter Results * US Abdomen Comp w elastography (01/03/2025 8:26 AM EDT) Anatomical Region Laterality Modality Abdomen Ultrasound 01/03/2025 8:26 AM EDT Narrative 01/03/2025 9:15 AM EDT [address] [address] Ultrasound Report Signed Patient: Demario Ramesh MR#: [id number] 1 : 1955 Acct:[id number] Age/Sex: 69 / M ADM Date: 01/03/25 Loc: HO.US Attending Dr: Ernesto Diallo MD Ordering Physician: Ernesto Diallo MD Date of Service: 01/03/25 Procedure(s): US abdomen comp w elastography Accession Number(s): [id number] cc: Ernesto Diallo MD Reason for Exam: [...] MD in OV> 01/03/25912 DD/ 5 TD/TT: 01/03/25 0846 Web Press Operator: Procedure Note Donotuseinterpreter, Image - 01/03/[address] [address] Ultrasound Report Signed Patient: Demario Ramesh AMR#: [id number] 1 : 7Acct:[id number] Age/Sex: 69 / MADM Date: 01/03/25 Loc: HO.US Attending Dr: Ernesto Diallo MD Ordering Physician: Ernesto Diallo MD Date of Service: 01/03/25 Procedure(s): US abdomen comp w elastography Accession Number(s): [id number] cc: Ernesto Diallo MD Reason for Exam: [...] MD in OV> 01/03/25912 DD/ 5 TD/TT: 01/03/25845 Web Press Operator: us Ernesto Diallo MD IMG US PROCEDURES Edited Re sult - Final * (ABNORMAL) Iron And Total Iron Binding Capacity (11/09/2024 10:39 AM EDT) Iron 127 45 - 160 mcg/dL [facility] Total Iron Binding Capacity 233 228 - 428 mcg/dL [facility] Percent Iron Saturation 55(H) 15 - 50 % [facility] Unsaturated Iron Binding 106 ug/dL [facility] Blood Venous blood specimen / Unknown 11/09/2024 10:39 AM EDT 11/09/2024 2:04 PM EDT us Ernesto Diallo MD LAB BLOOD ORDERABLES Final Result Performing Organization Address [facility]/ZIP Co de Phone Number [facility] [address] [place] [phone] * (ABNORMAL) Ferritin (11/09/2024 10:39 AM EDT) Ferritin 687(H) 20 - 250 ng/mL [facility] Blood Venous blood specimen / Unknown 11/09/2024 10:39 AM EDT 11/09/2024 2:04 PM EDT us Ernesto Diallo MD LAB BLOOD ORDERABLES Final Result Performing Organization Address City/[facility]/ZIP Co de Phone Number [facility] [address] [place] [phone] * Prothrombin Time-INR (11/09/2024 10:39 AM EDT) Prothrombin Time 11.9 10.9 - 12.4 SEC [facility] INTERNATIONAL NORM RATIO 1.0 0.9 - 1.1 [facility] Comment:INTERNATIONAL NORMAL IZED RATIO (INR) REFERENCE [...] BLOOD ORDERABLES Final Result Performing Organization Address [facility] Co de Phone Number [facility] [address] [place] [phone] * (ABNORMAL) Immunoglobulins, Quantitative, IgA, IgG, IgM (11/09/2024 10:39 AM EDT) IMMUNOGLOBULIN G 1274 600 - 1540 mg/dL [facility] IMMUNOGLOBULIN A 458(A) 70 - 320 mg/dL [facility] Immunoglobulin M 106 50 - 300 mg/dL [facility] Comment:THIS TEST WAS PERFOR MED AT:[employer] [place] [phone] GONZALEZ MD Blood Venous blood specimen / Unknown 11/09/2024 10:39 AM EDT 11/09/2024 2:04 PM EDT Ernesto Diallo MD LAB BLOOD ORDERABLES Final Result Performing Organization Address [facility]/ZIP Co de Phone Number [facility] [address] [place] [phone] * Hepatitis B Surface Antibody, Qualitative (11/09/2024 10:39 AM EDT) Pathologist [facility] ~Hepatitis B Surface Antibody NONREACTIVE Nonreactive [facility] Comment:Nonreactive: < 8.00 mIU/mL Blood Venous blood specimen / Unknown 11/09/2024 10:39 AM EDT 11/09/2024 2:04 PM EDT us Ernesto Diallo MD LAB BLOOD ORDERABLES Final Result [facility] [address] [place] [phone] * (ABNORMAL) CBC auto differential (11/01/2024 10:03 AM EDT) Pathologist [facility] White Blood Count 4.5(L) 4.8 - 10.8 X10*3/uL [facility] Red Blood Count 5.00 4.60 - 5.80 X10*6/uL [facility] Hemoglobin 15.2 14.0 - 18.0 g/dl [facility] Hematocrit 45.4 42.0 - 52.0 % [facility] Mean Corpuscular Volume 90.8 80.0 - 98.0 fL [facility] Mean Corpuscular Hemoglobin 30.4 27.0 - 33.0 pg [facility] Mean Corpuscular HGB Conc 33.5 31.0 - 36.0 g/dl [facility] Red Cell Distribution Width 11.4 11.0 - 16.0 % [facility] Platelet Count 201 160 - 400 X10*3/uL [facility] Mean Platelet Volume 11.5 9.4 - 12.4 fL [facility] Neutrophils Percent Auto 47.5 45 - 73 % [facility] Imm Gran Pct Auto 0.4 0.0 - 0.4 % [facility] Lymphocytes Percent Auto 31.4 20 - 40 % [facility] Monocytes Percent Auto 14.5(H) 2 - 11 % [facility] Eosinophils Percent Auto 5.1(H) 0 - 4 % [facility] Basophils Percent Auto 1.1 0 - 2 % [facility] NRBC Pct Auto 0.0 0.0 - 0.2 /100WBC [facility] Neutrophils Absolute Auto 2.1 2.0 - 8.3 x10*3/uL [facility] Imm Gran Abs Auto 0.02 0.00 - 0.03 X10*3/uL [facility] Lymphocytes Absolute Auto 1.4 1.2 - 4.9 X10*3/uL [facility] Monocytes Absolute Auto 0.7 0.1 - 1.2 X10*3/uL [facility] Eosinophils Absolute Auto 0.2 0.0 - 0.4 X10*3/uL [facility] Basophils Absolute Auto 0.1 0.0 - 0.2 X10*3/uL [facility] NRBC Abs Auto 0.000 0.0 - 0.012 X10*3/uL [facility] Blood Venous blood specimen / Unknown 11/01/2024 10:03 AM EDT 11/01/2024 2:03 PM EDT us Ernesto Diallo MD LAB BLOOD ORDERABLES Final Result Performing Organization Address City/[facility]/ZIP Co de Phone Number [facility] [address] [place] [phone] * TSH W/Reflex to FT4 (11/01/2024 10:03 AM EDT) TSH reflex Free T4 1.01 0.32 - 4.0 uIU/mL [facility] Blood Venous blood specimen / Unknown 11/01/2024 10:03 AM EDT 11/01/2024 2:03 PM EDT Ernesto Diallo MD LAB BLOOD ORDERABLES Final Result [facility] [address] [place] [phone] * (ABNORMAL) Lipid Panel, Standard (11/01/2024 10:03 AM EDT) Triglycerides 68 <150 mg/dL [facility] Comment:Desirable Triglyceri de: less than 150 mg/dLBorderline High Triglyceride 150-199 mg/dLHigh Triglyceride: 200-499 mg/dLVery High Triglyceride: greater than or equal to 5OO mg/dL Cholesterol 171 <200 mg/dL [facility] Comment:Desirable Cholestero l: less than 200 mg/dLBorderline High Cholesterol: 200-239 mg/dLHigh Cholesterol: greater than 239 mg/dL LDL Cholesterol Calculated 121(H) <100 mg/dL [facility] Comment:Desirable LDL: less than 100 mg/dLNear Optimal/Above Optimal LDL: 110- 129 mg/dLBorderline High LDL: 130-159 mg/dLHigh LDL: 160-189 mg/dLVery High LDL: greater than or equal to 190 mg/dL HDL Cholesterol 37(L) >40 mg/dL [facility] Comment:Desirable HDL: great er than 40 mg/dL Note: This HDL assay may give artificially low results in patients with liver disease. Blood Venous blood specimen / Unknown 11/01/2024 10:03 AM EDT 11/01/2024 2:03 PM EDT us Ernesto Diallo MD LAB BLOOD ORDERABLES Final Result [facility] [address] [place] [phone] * (ABNORMAL) Comprehensive Metabolic Panel (11/01/2024 10:03 AM EDT) Sodium 142 135 - 145 mmol/L [facility] Potassium 4.2 3.3 - 5.1 mmol/L [facility] Chloride 108 96 - 108 mmol/L [facility] Carbon Dioxide 26 22 - 29 mmol/L [facility] Anion Gap 12 12 - 20 [facility] Urea Nitrogen (BUN) 15 9 - 16 mg/dL [facility] Creatinine, Serum 1.07 0.5 - 1.4 mg/dL [facility] Estimated Glomerular Filt Rate >60 [facility] Comment:Chronic Kidney Disea se: Estimated GFR < 60 mL/min/1.25x4Enkkee Kidney Disease: Estimated GFR < 15 mL/min/1.73m2 Glucose 94 60 - 115 mg/dL [facility] Calcium 8.9 8.4 - 10.2 mg/dL [facility] Bilirubin, Total 1.5(H) 0.0 - 1.0 mg/dL [facility] Aspartate Amino Transferase 31 5 - 37 U/L [facility] Alanine Aminotransferase 49(H) 0 - 40 U/L [facility] Total Protein 7.3 6.5 - 8.0 g/dL [facility] Albumin Level 4.3 3.5 - 5.0 g/dL [facility] Alkaline Phosphatase 81 39 - 117 U/L [facility] Blood Venous blood specimen / Unknown 11/01/2024 10:03 AM EDT 11/01/2024 2:03 PM EDT Ernesto Diallo MD LAB BLOOD ORDERABLES Final Result [facility] [address] [place] [phone] documented in this encounter Visit Diagnoses Diagnosis Essential hypertension- Primary Unspecified essential hypertension Transaminitis Nonspecific elevation of levels of transaminase or lactic acid dehydrogenase (LDH) documented in this encounter Additional Health Concerns Assessment Noted Time PHQ-9 Depression Total Score: 0 06/15/19 25 11:19 AM EST documented as of this encounter Care Teams Insight Director Relationship Specialty Start Date End Date Ernesto Diallo MD [address] [place] [phone] PCP - General Internal Medicine 07/02/17 documented as of this encounter
--- OUTSIDE RECORDS SUMMARY | 2025-01-03 09:17 | XMS_ITS | Encounter Summary ---
Author Organization [employer] Address [address] [facility] 7 [place] [address] Care Team Providers Care Prosthetic Technician Name Role Phone Ernesto Diallo MD Primary Care Provider [phone] Reason for Visit * Reason Onset Date Comments Med Refill 12/01/2023 Encounter Details Date Type Department Care Team ([facility] st Contact Info) Description 12/01/2023 Telephone [facility] [address] [place] [address] Ernesto Diallo MD [address] [place], [place] [phone] Med Refill Social History Tobacco Use Types Packs/Day Years [...] AM EDT documented as of this encounter Miscellaneous Notes * Telephone Encounter - [employer] [employer] - 12/01/2023 9:53 AM EDT TC from pt requesting medication refill. Medications needing refill : oxyCODONE-acetaminophen (Percocet) 5-325 MG tablet To be sent to: [facility] documented in this encounter Plan of Treatment Upcoming Encounters Date Type Department Care Team (Late st Contact Info) Description 02/10/2025 11:00 AM EDT Clinical Support [facility] PEDS [address] [place] [address] Shefali Metcalf, ANSELMO [address] [place] [address] documented as of this encounter Visit Diagnoses Not on filedocumented in this encounter Additional Health Concerns Assessment Noted Time PHQ-9 Depression Total Score: 0 06/04/19 23 11:26 AM EST documented as of this encounter Care Teams Prosthetic Technician Relationship Specialty Start Date End Date Ernesto Diallo MD [address] [place] [address] PCP - General Internal Medicine 07/02/17 documented as of this encounter
--- OUTSIDE RECORDS SUMMARY | 2025-01-03 09:17 | XMS_ITS | Encounter Summary ---
Author Organization [employer] Address [address] [facility] 7 [place] [address] Care Team Providers Care Distribution Operations Manager Name Role Phone Ernesto Diallo MD Primary Care Provider [phone] Reason for Visit * Reason Comments Med Refill Encounter Details Date Type Department Care Team ([place] [facility] Contact Info) Description 03/16/2023 Refill [facility] MED & PEDS [address] [place], [place] [phone] Ernesto Diallo MD [address] [place] [address] Primary insomnia Social History Tobacco Use Types [...] Description 02/10/2025 11:00 AM EDT Clinical Support [facility] MED & PEDS [address] [place] [address] Shefali Metcalf, ANSELMO [address] [place] [address] documented as of this encounter Visit Diagnoses Diagnosis Primary insomnia Persistent disorder of initiating or maintaining sleep documented in this encounter Additional Health Concerns Assessment Noted Time PHQ-9 Depression Total Score: 0 06/04/19 23 11:26 AM EST documented as of this encounter Care Teams Distribution Operations Manager Relationship Specialty Start Date End Date Ernesto Diallo MD [address] [place] [address] PCP - General Internal Medicine 07/02/17 documented as of this encounter
== END 2025-01-03 08:15 | disposition home or self-care (01) ==
LOC: HO.US 08:14
PROVIDERS: PCP Internal Medicine; Visit Provider Internal Medicine
DX: R74.01 Elevation of levels of liver transaminase levels (principal)
CPT/HCPCS: 76700; 76981

== ENCOUNTER → 2025-01-03 08:15 | Outpatient (BNV) | payer OTHER, SELFPAY | PROVIDERS: PCP Internal Medicine; Visit Provider Radiology Diagnostic Radiology | DX: N20.0 Calculus of kidney (principal); K76.0 Fatty (change of) liver, not elsewhere classified | CPT/HCPCS: 76700 ==

== ENCOUNTER 2025-01-28 10:40 | Outpatient (AMB) | payer OTHER, SELFPAY ==
[2025-01-28 10:49] VITALS: BMI 30.6
--- NOTE | 2025-01-28 10:49 | A.OFFVIS_ITS ---
Vital Signs 01/28/25 10:49 Height 5 ft 10 in Weight 213 lb BMI 30.6 Intake Visit Reasons: OV b/l knee inj last inj: 02/23/24 Intake Note: Michele 69 year old male who presents today for a follow up of bilateral knee OA, last injections on 02/23/24. Patient reports last injections provided him with relief and continues to help. States that he uses Diclofenac that provides little relief. Packing Machine Can Feeder Required: Yes Packing Machine Can Feeder Name: [id number] Allergies No Known Allergies Allergy (Verified 01/28/25 10:55) Medication List - Last Reconciled 01/28/25 by Lisa Al PA-C acetaminophen ER (Mapap Arthritis Pain) 650 mg PO Q8H PRN diclofenac potassium 50 mg PO BID diclofenac sodium 1% 2 grams topical BID hydrocortisone 2.5% (Procto-Med HC) topical ibuprofen 800 mg PO Q8H lidocaine 5% 1 patch topical DAILY lisinopril 10 mg PO DAILY tizanidine 4 mg PO ONCE trazodone 50 mg PO BEDTIME PRN HPI HPI OV b/l knee inj last inj: 02/23/24: Details: 69-year-old gentleman returns to the office today for bilateral knee pain. He had injections back in February of 2024 which were helpful up until recently. He has discomfort with daily activities including stairs and prolonged walking. [facility] Medical History Rotator cuff impingement syndrome of right shoulder Rotator cuff impingement syndrome of left shoulder Localized osteoarthritis of left knee Primary localized osteoarthritis of right knee Family History Father No problems noted. Mother No problems noted. Social History Current occupational status: retired Current occupation: Right Handed Review of Systems Const All systems reviewed & are unremarkable except as noted in HPI and below Physical Exam Vital Signs: BMI result Body Mass Index 30.6 Extrem Other: Bilateral knee: Skin intact, no erythema or joint effusion. Tenderness along the medial and lateral joint line. Full ROM with crepitus. Negative James?s. No ligamentous laxity. NVI. Office Procedures AMB Joint Injection/Aspiration Joint Injection/Aspiration Primary Site: right knee Secondary Site: left knee Prep: site was prepped using aseptic technique, ethochloride spray was applied and injection warnings given Injected: 40 mg of, with 3 mL of, 1% plain lidocaine, 0.25% bupivacaine, in the joint and decadron Approach Used: anterolateral Procedure: The patient tolerated the procedure well and there was some relief with the local anesthesia Coding 01964 - Glenohumeral/Tronchanteric Bursa/Intraarticular Procedure code (CPT) selection complete Assessment & Plan Assessment & Plan (1) Primary localized osteoarthritis of right knee: Code(s): M17.11 - Unilateral primary osteoarthritis, right knee Category: Medical (2) Osteoarthritis of left knee: Code(s): M17.12 - Unilateral primary osteoarthritis, left knee Category: Medical Qualifiers: Osteoarthritis type: primary Qualified Code(s): M17.12 - Unilateral primary osteoarthritis, left knee Plan We discussed options today, which include steroid injection. The patient did consent to move forward with the bilateral knee injection, which was tolerated well. I recommended rest, ice, and elevation and OTC anti-inflammatories as needed for discomfort. If symptoms persist or worsens over the next 6-8 weeks, patient will contact the office, otherwise follow-up as needed. Coding Level of Care Code Est Pt Level 3 (48959) Complex EM visit Add On G2211 Diagnoses Primary localized osteoarthritis of right knee M17.11 Primary osteoarthritis of left knee M17.12 Osteoarthritis type: primary CPT Codes Coding - Joint 7: 92275 - Glenohumeral/Tronchanteric Bursa/Intraarticular ([id number])
== END 2025-01-28 11:13 | disposition home or self-care (01) ==
LOC: HO.HOS 10:41
PROVIDERS: PCP Internal Medicine; Visit Provider Physician Assistant
DX: M17.0 Bilateral primary osteoarthritis of knee (principal)
CPT/HCPCS: 20610; 99213

== ENCOUNTER → 2025-01-28 10:40 | Outpatient (BNVA) | payer OTHER, SELFPAY | PROVIDERS: PCP Internal Medicine; Visit Provider Physician Assistant | DX: M17.0 Bilateral primary osteoarthritis of knee (principal) | CPT/HCPCS: 20610; 99212; J0665; J1100; J2003 ==

== ENCOUNTER 2025-02-28 10:04 | Outpatient (REF) | payer OTHER, SELFPAY ==
[2025-02-28 14:53] LABS: Cholesterol 167 mg/dL (<200); HDL Cholesterol 37 mg/dL (>40); Triglycerides 70 mg/dL (<150)
--- OUTSIDE RECORDS SUMMARY | 2025-02-28 20:54 | XMS_ITS | Encounter Summary ---
Author Organization [employer] Address [address] [place] [address] [place] [address] Care Team Providers Care Commercial Credit Lead Name Role Phone Ernesto Diallo MD Primary Care Provider [phone] Reason for Visit * Reason Comments Med Refill Encounter Details Date Type Department Care Team ([facility] st Contact Info) Description 05/12/2024 Refill [facility] CH[facility] MED & PEDS [address] [place], [place] [phone] Ernesto Diallo MD 505 [place] [address] Primary insomnia Social History Tobacco Use Types [...] Care Team (Late st Contact Info) Description 03/07/2025 10:45 AM EST Immunization [facility] MED & PEDS [address] [place] [address] 03/07/2025 11:00 AM EST Office Visit [facility] MED & PEDS [address] [place] [address] Ernesto Diallo MD 505 [place] [address] 06/02/2025 11:00 AM EST Clinical Support [facility] MED & PEDS [address] [place] [address] Shefali Metcalf, ANSELMO [address] [place] [address] documented as of this encounter Visit Diagnoses Diagnosis Primary insomnia Persistent disorder of initiating or maintaining sleep documented in this encounter Additional Health Concerns Assessment Noted Time PHQ-9 Depression Total Score: 0 06/04/19 23 11:26 AM EST documented as of this encounter Care Teams Commercial Credit Lead Relationship Specialty Start Date End Date Ernesto Diallo MD [address] [place] [address] PCP - General Internal Medicine 07/02/17 documented as of this encounter
--- OUTSIDE RECORDS SUMMARY | 2025-02-28 20:55 | XMS_ITS | Encounter Summary ---
Author Organization [employer] [facility] Address [address] [place] [address] Care Team Providers Care Bench Hand Name Role Phone Ernesto Diallo MD Primary Care Provider [phone] Reason for Visit * Reason Comments Med Refill Encounter Details Date Type Department Care Team ([facility] Contact Info) Description 12/11/2022 Refill [facility] MED & PEDS [address] [place] [address] Ernesto Diallo MD [address] [place] [address] Primary insomnia Social History Tobacco Use Types [...] Upcoming Encounters Date Type Department Care Team ([facility] Contact Info) Description 03/07/2025 10:45 AM EST Immunization [facility] MED & PEDS [address] [place], [place] [phone] 03/07/2025 11:00 AM EST Office Visit [facility] MED & PEDS [address] [place] [address] Ernesto Diallo MD [address] [place] [address] 06/02/2025 11:00 AM EST Clinical Support [facility] MED & PEDS [address] [place] [address] Shefali Metcalf, ANSELMO [address] [place] [address] documented as of this encounter Visit Diagnoses Diagnosis Primary insomnia Persistent disorder of initiating or maintaining sleep documented in this encounter Additional Health Concerns Assessment Noted Time PHQ-9 Depression Total Score: 0 06/04/19 23 11:26 AM EST documented as of this encounter Care Teams Bench Hand Relationship Specialty Start Date End Date Ernesto Diallo MD [address] [place] [address] PCP - General Internal Medicine 07/02/17 documented as of this encounter
--- OUTSIDE RECORDS SUMMARY | 2025-02-28 20:55 | XMS_ITS | Encounter Summary ---
Author Organization [employer] Address [address] [address] Care Team Providers Care Commercial Airline Pilot Name Role Phone Ernesto Diallo MD Primary Care Provider [phone] Reason for Visit * Reason Onset Date Comments Med Refill 02/03/2025 Encounter Details Date Type Department Care Team ([facility] st Contact Info) Description 02/03/2025 Telephone [facility] MEDICINE [address] [place] [address] Ernesto Diallo MD [address] [place], [place] [phone] Med Refill Social History Tobacco Use Types [...] encounter Miscellaneous Notes * Telephone Encounter - Shamar Munoz - 02/03/2025 1:22 PM EDT TC from pt requesting medication refill. Medications needing refill: oxyCODONE-acetaminophen (Percocet) 5-325 MG tablet To be sent to: [facility] [address] [place] [address] documented in this encounter Plan of Treatment Upcoming Encounters Date Type Department Care Team ([facility] st Contact Info) Description 03/07/2025 10:45 AM EST Immunization [facility] MED & PEDS [address] [place] [address] 03/07/2025 11:00 AM EST Office Visit [facility] MED & PEDS [address] [place] [address] Ernesto Diallo MD [address] [place] [address] 06/02/2025 11:00 AM EST Clinical Support [facility] MED & PEDS [address] [place] [address] Shefali Metcalf RN 505 [place] [address] documented as of this encounter Visit Diagnoses Not on filedocumented in this encounter Additional Health Concerns Assessment Noted Time PHQ-9 Depression Total Score: 0 06/15/19 25 11:19 AM EST documented as of this encounter Care Teams Commercial Airline Pilot Relationship Specialty Start Date End Date Ernesto Diallo MD [address] [place] [address] PCP - General Internal Medicine 07/02/17 documented as of this encounter
--- OUTSIDE RECORDS SUMMARY | 2025-02-28 20:55 | XMS_ITS | Encounter Summary ---
Author Organization [employer] Address [address] [place] [address] Care Team Providers Care Intelligence Support Officer Name Role Phone Ernesto Diallo MD Primary Care Provider [phone] Reason for Visit * Reason Comments Med Refill Encounter Details Date Type Department Care Team ([facility] Contact Info) Description 10/27/2022 Refill [facility] [address] [place] [address] Ernesto Diallo MD [address] [place] [address] HTN (hypertension), benign Social History Tobacco Use [...] Upcoming Encounters Date Type Department Care Team ([facility] Contact Info) Description 03/07/2025 10:45 AM EST Immunization [facility] CHC MED & PEDS [address] [place], [place] [phone] 03/07/2025 11:00 AM EST Office Visit [facility] MED & PEDS [address] [place] [address] Ernesto Diallo MD [address] [place] [address] 06/02/2025 11:00 AM EST Clinical Support [facility] MED & PEDS [address] [place] [address] Shefali Metcalf, ANSELMO [address] [place] [address] documented as of this encounter Visit Diagnoses Diagnosis HTN (hypertension), benign Essential hypertension, benign documented in this encounter Additional Health Concerns Assessment Noted Time PHQ-9 Depression Total Score: 0 06/04/19 23 11:26 AM EST documented as of this encounter Care Teams Intelligence Support Officer Relationship Specialty Start Date End Date Ernesto Diallo MD [address] [place] [address] PCP - General Internal Medicine 07/02/17 documented as of this encounter
--- OUTSIDE RECORDS SUMMARY | 2025-02-28 20:55 | XMS_ITS | Encounter Summary ---
Author Organization [employer] Address [address] [place] [address] [place] [address] Care Team Providers Care Adoption Social Worker Name Role Phone Ernesto Diallo MD Primary Care Provider [phone] Reason for Visit * Reason Comments Med Refill Encounter Details Date Type Department Care Team ([facility] st Contact Info) Description 03/16/2023 Refill [facility] CHC MED & PEDS [address] [place], [place] [phone] Ernesto Diallo MD [address] [place] [address] Primary insomnia Social History Tobacco Use Types [...] Info) Description 03/07/2025 10:45 AM EST Immunization [facility] MED & PEDS [address] [place] [address] 03/07/2025 11:00 AM EST Office Visit [facility] MED & PEDS [address] [place] [address] Ernesto Diallo MD [address] [place] [address] 06/02/2025 11:00 AM EST Clinical Support [facility] MED & PEDS [address] [place] [address] Shefali Metcalf, ANSELMO [address] [place] [address] documented as of this encounter Visit Diagnoses Diagnosis Primary insomnia Persistent disorder of initiating or maintaining sleep documented in this encounter Additional Health Concerns Assessment Noted Time PHQ-9 Depression Total Score: 0 06/04/19 23 11:26 AM EST documented as of this encounter Care Teams Adoption Social Worker Relationship Specialty Start Date End Date Ernesto Diallo MD [address] [place] [address] PCP - General Internal Medicine 07/02/17 documented as of this encounter
--- OUTSIDE RECORDS SUMMARY | 2025-02-28 20:55 | XMS_ITS | Encounter Summary ---
Author Organization [employer] Address 75 [facility] 7 [place] [address] Care Team Providers Care Twine Reeling Machine Operator Name Role Phone Ernesto Diallo MD Primary Care Provider [phone] Encounter Details Date Type Department Care Team ([facility] st Contact Info) Description 02/09/2024 Orders Only [facility] CHC MED & PEDS [address] [place], [place] [phone] Ernesto Diallo MD [address] [place], [place] [phone] Essential hypertension (Primary Dx) Social History Tobacco [...] Info) Description 03/07/2025 10:45 AM EST Immunization [facility] MED & PEDS [address] [place] [address] 03/07/2025 11:00 AM EST Office Visit [facility] MED & PEDS [address] [place] [address] Ernesto Diallo MD [address] [place] [address] 06/02/2025 11:00 AM EST Clinical Support [facility] MED & PEDS [address] [place] [address] Shefali Metcalf RN [address] [place] [address] documented as of this encounter Procedures Procedure [...] PM EST Narrative 04/26/2024 8:36 AM EST [facility] [address] [place] [address] XRay Report Signed Patient: Demario Ramesh MR#: [id number] 1 : 1955 Acct:[id number] Age/Sex: 68 / M ADM Date: 02/23/24 Loc: HO.HOSX Attending Dr: Lisa Al PA-C Ordering Physician: Lisa Al PA-C Date of Service: 02/23/24 Procedure(s): XR knee RT 3V Accession Number(s): [id number] cc: Ernesto Diallo MD; Lisa Al PA-C [...] 04/26/24 0833 DD/ 1216 TD/TT: 02/23/24 1220 Communication Technician: LATISHA Procedure Note Donotuseinterpreter, Image - 04/26/2024 [facility] [address] [place] [address] XRay Report Signed Patient: Demario Ramesh AMR#: [id number] 1 : 1955cct:[id number] Age/Sex: 68 / MADM Date: 02/23/24 Loc: HO.HOSX Attending Dr: Lisa Al PA-C Ordering Physician: Lisa Al PA-C Date of Service: 02/23/24 Procedure(s): XR knee RT 3V Accession Number(s): [id number] cc: Ernesto Diallo MD; Lisa Al PA-C [...] 04/26/24 0833 DD/ 1216 TD/TT: 02/23/24 1220 Communication Technician: LATISHA [facility] External Provider IMG XR PROCEDURES Edited Result - Final * XR Knee 3 Views Left (02/23/2024 12:16 PM EST) Anatomical Region Laterality Modality Lower Extremities, Knee Left Radiogra phic Imaging 02/23/2024 12:1 6 PM EST Narrative 04/26/2024 8:34 AM EST [facility] [address] [place] [address] XRay Report Signed Patient: Demario Ramesh MR#: [id number] 1 : 1955 Acct:[id number] Age/Sex: 68 / M ADM Date: 02/23/24 Loc: BRANDY Attending Dr: Lisa Al PA-C Ordering Physician: Lisa Al PA-C Date of Service: 02/23/24 Procedure(s): XR knee LT 3V Accession Number(s): [id number] cc: Ernesto Diallo MD; Lisa Al PA-C EXAMINATION: XR KNEE LEFT CLINICAL INFORMATION: Pain in left knee M25.562. COMPARISON: Bilateral knee series 02/23/2024 TECHNIQUE: Patella and lateral view of the left knee FINDINGS: Mild osteoarthritis of the patellofemoral compartment. Cannot assess medial or lateral compartment on lateral view only. Ossification adjacent to the tibial tubercle compatible with old Octavio-Schlatter's disease.. XR/XR knee LT 3V IMPRESSION: Limited exam 1. Mild osteoarthritis. 2. 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 Electronically signed by: Ariel Perez MD 04/26/2024 08:31 AM EST Dictated By: Ariel Perez MD Signed By: <Electronically signed by Ariel Perez MD in OV> 04/26/24 0831 DD/ 1216 TD/TT: 02/23/24 1220 Communication Technician: LATISHA Procedure Note Donotuseinterpreter, Image - 04/26/2024 [facility] [address] [place] [address] [place] [address] XRay Report Signed Patient: Demario Ramesh AMR#: [id number] 1 : 1955cct:[id number] Age/Sex: 68 / MADM Date: 02/23/24 Loc: BRANDY Attending Dr: Lisa Al PA-C Ordering Physician: Lisa Al PA-C Date of Service: 02/23/24 Procedure(s): XR knee LT 3V Accession Number(s): [id number] cc: Ernesto Diallo MD; Lisa Al PA-C EXAMINATION: XR KNEE LEFT CLINICAL INFORMATION: Pain in left knee M25.562. COMPARISON: Bilateral knee series 02/23/2024 TECHNIQUE: Patella and lateral view of the left knee FINDINGS: Mild osteoarthritis of the patellofemoral compartment. Cannot assess medial or lateral compartment on lateral view only. Ossification adjacent to the tibial tubercle compatible with old Octavio-Schlatter's disease.. XR/XR knee LT 3V IMPRESSION: Limited exam 1. Mild osteoarthritis. 2. Evidence of old Eden-Schlatter's disease. Electronically signed by: Ariel Perez MD 04/26/2024 08:31 AM EST RP Dictated By: Ariel Perez MD Signed By: <Electronically signed by Ariel Perez MD inOV> 04/26/24 0831 DD/ 1216 TD/TT: 02/23/24 1220 Communication Technician: LATISHA [facility] External Provider IMG XR PROCEDURES Edited Result - Final documented in this encounter Visit Diagnoses Diagnosis Essential hypertension- Primary Unspecified essential hypertension documented in this encounter Additional Health Concerns Assessment Noted Time PHQ-9 Depression Total Score: 0 06/04/19 23 11:26 AM EST documented as of this encounter Care Teams Twine Reeling Machine Operator Relationship Specialty Start Date End Date Ernesto Diallo MD [address] [place] [address] PCP - General Internal Medicine 07/02/17 documented as of this encounter
--- OUTSIDE RECORDS SUMMARY | 2025-02-28 20:55 | XMS_ITS | Encounter Summary ---
Author Organization [employer] Address [address] [place] [address] Care Team Providers Care Packaging Sales Representative Name Role Phone Ernesto Diallo MD Primary Care Provider [phone] Encounter Details Date Type Department Care Team ([facility] Contact Info) Description 12/10/2022 Orders Only [facility] MED & PEDS [address] [place] [address] Ernesto Diallo MD [address] [place] [address] Social History Tobacco Use Types Packs/Day Years [...] Encounters Date Type Department Care Team (Late Contact Info) Description 03/07/2025 10:45 AM EST Immunization [facility] MED & PEDS [address] [place] [address] 03/07/2025 11:00 AM EST Office Visit [facility] MED & PEDS [address] [place] [address] Ernesto Diallo MD [address] [place] [address] 06/02/2025 11:00 AM EST Clinical Support [facility] MED & PEDS [address] [place] [address] Shefali Metcalf, ANSELMO [address] [place] [address] documented as of this encounter Visit Diagnoses Not on filedocumented in this encounter Additional Health Concerns Assessment Noted Time PHQ-9 Depression Total Score: 0 06/04/19 23 11:26 AM EST documented as of this encounter Care Teams Packaging Sales Representative Relationship Specialty Start Date End Date Ernesto Diallo MD [address] [place] [address] PCP - General Internal Medicine 07/02/17 documented as of this encounter
--- OUTSIDE RECORDS SUMMARY | 2025-02-28 20:55 | XMS_ITS | Encounter Summary ---
Author Organization [employer] Address 75 [facility] 7 [place] [address] Care Team Providers Care Primer Inserting Machine Operator Name Role Phone Ernesto Diallo MD Primary Care Provider [phone] Encounter Details Date Type Department Care Team ([facility] st Contact Info) Description 02/13/2023 Orders Only [facility] CHC MED & PEDS [address] [place], [place] [phone] Ernesto Diallo MD [address] [place] [address] Social History Tobacco Use Types Packs/Day Years [...] RN Trouble relaxing 0 02/13/2023 10:13 AM JORGE AT Shefali Metcalf RN Being so restless that it is hard to sit still 0 02/13/2023 10:13 AM Shefali Cagle RN Becoming easily annoyed or irritable 0 02/13/2023 10:13 AM JORGE AT Shefali Metcalf RN Feeling afraid as if somethi ng awful might happen 0 02/13/2023 10:13 AM EDShefali Lyles RN BRIAN-7 Total Score 0 02/13/2023 10:13 AM EDT Shefali Metcalf RN documented as of this encounter Plan of Treatment Upcoming Encounters Date Type Department Care Team (Late st Contact Info) Description 03/07/2025 10:45 AM EST Immunization [facility] MED & PEDS [address] [place] [address] 03/07/2025 11:00 AM EST Office Visit [facility] MED & PEDS [address] [place] [address] Ernesto Diallo MD [address] [place] [address] 06/02/2025 11:00 AM EST Clinical Support [facility] MED & PEDS [address] [place] [address] Shefali Metcalf, ANSELMO [address] [place], [place] [phone] documented as of this encounter Visit Diagnoses Not on filedocumented in this encounter Additional Health Concerns Assessment Noted Time PHQ-9 Depression Total Score: 0 06/04/19 23 11:26 AM EST documented as of this encounter Care Teams Primer Inserting Machine Operator Relationship Specialty Start Date End Date Ernesto Diallo MD [address] [place] [address] PCP - General Internal Medicine 07/02/17 documented as of this encounter
--- OUTSIDE RECORDS SUMMARY | 2025-02-28 20:56 | XMS_ITS | Encounter Summary ---
Author Organization [employer] Address 75 [facility] 7 [place] [address] Care Team Providers Care Excellence Coach Name Role Phone Ernesto Diallo MD Primary Care Provider [phone] Encounter Details Date Type Department Care Team ([facility] st Contact Info) Description 09/29/2023 Orders Only [facility] CHC MED & PEDS [address] [place], [place] [phone] Ernesto Diallo MD [address] [place] [address] Social History Tobacco Use Types Packs/Day Years [...] 03/07/2025 10:45 AM EST Immunization [facility] MED & PEDS [address] [place] [address] 03/07/2025 11:00 AM EST Office Visit [facility] MED & PEDS [address] [place] [address] Ernesto Diallo MD [address] [place] [address] 06/02/2025 11:00 AM EST Clinical Support [facility] MED & PEDS [address] [place] [address] Shefali Metcalf, ANSELMO [address] [place] [address] documented as of this encounter Visit Diagnoses Not on filedocumented in this encounter Additional Health Concerns Assessment Noted Time PHQ-9 Depression Total Score: 0 06/04/19 23 11:26 AM EST documented as of this encounter Care Teams Excellence Coach Relationship Specialty Start Date End Date Ernesto Diallo MD [address] [place] [address] PCP - General Internal Medicine 07/02/17 documented as of this encounter
--- OUTSIDE RECORDS SUMMARY | 2025-02-28 20:56 | XMS_ITS | Encounter Summary ---
Author Organization [employer] Address [address] [address] Care Team Providers Care Dance Entertainer Name Role Phone Ernesto Diallo MD Primary Care Provider [phone] Reason for Visit * Reason Onset Date Comments Med Refill 12/01/2023 Encounter Details Date Type Department Care Team ([facility] st Contact Info) Description 12/01/2023 Telephone [facility] [address] [place] [address] Ernesto Diallo MD [address] [place], [place] [phone] Med Refill Social History Tobacco Use Types [...] 5-325 MG tablet To be sent to: [facility] documented in this encounter Plan of Treatment Upcoming Encounters Date Type Department Care Team (Late st Contact Info) Description 03/07/2025 10:45 AM EST Immunization [facility] [address] [place] [address] 03/07/2025 11:00 AM EST Office Visit [facility] [address] [place] [address] Ernesto Diallo MD [address] [place] [address] 06/02/2025 11:00 AM EST Clinical Support [facility] [address] [place] [address] Shefali Metcalf RN [address] [place] [address] documented as of this encounter Visit Diagnoses Not on filedocumented in this encounter Additional Health Concerns Assessment Noted Time PHQ-9 Depression Total Score: 0 06/04/19 23 11:26 AM EST documented as of this encounter Care Teams Dance Entertainer Relationship Specialty Start Date End Date Ernesto Diallo MD [address] [place] [phone] PCP - General Internal Medicine 07/02/17 documented as of this encounter
--- OUTSIDE RECORDS SUMMARY | 2025-02-28 20:56 | XMS_ITS | Encounter Summary ---
Author Organization [employer] Address 75 [facility] 7 [place] [address] Care Team Providers Care Director Of Field Coordination Name Role Phone Ernesto Diallo MD Primary Care Provider [phone] Encounter Details Date Type Department Care Team ([facility] st Contact Info) Description 01/15/2024 Orders Only [facility] [address] [place], [place] [phone] Ernesto Diallo MD [address] [place] [address] Sacroiliac joint pain (Primary Dx); Chronic right-sided [...] 03/07/2025 10:45 AM EST Immunization [facility] [address] [place] [address] 03/07/2025 11:00 AM EST Office Visit [facility] [address] [place] [address] Ernesto Diallo MD [address] [place] [address] 06/02/2025 11:00 AM EST Clinical Support [facility] [address] [place] [address] Shefali Metcalf, RN [address] [place] [address] documented as of this encounter Visit Diagnoses Diagnosis Sacroiliac joint pain- Primary Disorders of sacrum Chronic right-sided low back pain without sciatica documented in this encounter Additional Health Concerns Assessment Noted Time PHQ-9 Depression Total Score: 0 06/04/19 23 11:26 AM EST documented as of this encounter Care Teams Director Of Field Coordination Relationship Specialty Start Date End Date Ernesto Diallo MD [address] [place] [address] PCP - General Internal Medicine 07/02/17 documented as of this encounter
--- OUTSIDE RECORDS SUMMARY | 2025-02-28 20:56 | XMS_ITS | Encounter Summary ---
Author Organization [employer] Address [address] [place] [address] Care Team Providers Care Electronic Service Technician Name Role Phone Ernesto Diallo MD Primary Care Provider [phone] Reason for Referral * Imaging (Routine) - Closed Specialty Diagnoses / Procedures Referred By Contac t Referred To Contact Radiology Diagnoses Transaminitis Procedures US Abdomen Comp w elastography Ernesto Diallo MD [address] [place] [address] Phone: tel: fax: [address] Phone: tel: fax: Referral ID Status Reason Start Date Expiration Date Visits Re quested Visits Authorized [id number] Closed 11/01/2024 11/01/2025 1 1 Encounter Details Date Type Department Care Team (Late st Contact Info) Description 11/01/2024 Orders Only [facility] [address] [place], [place] [phone] Ernesto Diallo MD [address] [place], [place] [phone] Essential hypertension (Primary Dx); Transaminitis Social History [...] Info) Description 03/07/2025 10:45 AM EST Immunization [facility] [address] [place] [address] 03/07/2025 11:00 AM EST Office Visit [facility] [address] [place] [address] Ernesto Diallo MD [address] [place] [address] 06/02/2025 11:00 AM EST Clinical Support [facility] [address] [place] [address] Shefali Metcalf, RN [address] [facility] [place] [address] Scheduled Orders Name Type Priority Associated Diagnoses [...] AM EDT Narrative 01/03/2025 9:15 AM EDT [address] [address] Ultrasound Report Signed Patient: Demario Ramesh MR#: [id number] 1 : 1955 Acct:[id number] Age/Sex: 69 / M ADM Date: 01/03/25 Loc: HO.US Attending Dr: Ernseto Diallo MD Ordering Physician: Ernesto Diallo MD Date of Service: 01/03/25 Procedure(s): US abdomen comp w elastography Accession Number(s): [id number] cc: Ernesto Diallo MD Reason for Exam: [...] Wong Lim MD 01/03/2025 09:13 AM EDT RP Dictated By: Wong Lim MD Signed By: <Electronically signed by Wong Lim MD in OV> 01/03/25912 DD/ 5 TD/TT: 01/03/25845 Customs Port Director: Procedure Note Donotuseinterpreter, Image - 01/03/2025 [place] [id number] Ultrasound Report Signed Patient: Demario Ramesh AMR#: [id number] 1 : 1955cct:[id number] Age/Sex: 69 / MADM Date: 01/03/25 Loc: HO.US Attending Dr: Ernesto Diallo MD Ordering Physician: Ernesto Diallo MD Date of Service: 01/03/25 Procedure(s): US abdomen comp w elastography Accession Number(s): [id number] cc: Ernesto Diallo MD Reason for Exam: [...] in OV> 01/03/25912 DD/ 5 TD/TT: 01/03/25845 Customs Port Director: us Ernesto Diallo MD IMG US PROCEDURES Edited Re sult - Final * (ABNORMAL) Iron And Total Iron Binding Capacity (11/09/2024 10:39 AM EDT) [facility] Iron 127 45 - 160 mcg/dL [facility] Total Iron Binding Capacity 233 228 - 428 mcg/dL [facility] Percent Iron Saturation 55(H) 15 - 50 % [facility] Unsaturated Iron Binding 106 ug/dL [facility] Blood Venous blood specimen / Unknown 11/09/2024 10:39 AM EDT 11/09/2024 2:04 PM EDT us Ernesto Diallo MD LAB BLOOD ORDERABLES Final Result [facility] [address] [place] [phone] [phone] * (ABNORMAL) Ferritin (11/09/2024 10:39 AM EDT) Ferritin 687(H) 20 - 250 ng/mL [facility] Blood Venous blood specimen / Unknown 11/09/2024 10:39 AM EDT 11/09/2024 2:04 PM EDT us Ernesto Diallo MD LAB BLOOD ORDERABLES Final Result Performing Organization Address [facility] Co de Phone Number [facility] [address] [place] [phone] * Prothrombin Time-INR (11/09/2024 10:39 AM EDT) Pathologist [facility] Prothrombin Time 11.9 10.9 - 12.4 SEC [facility] INTERNATIONAL NORM RATIO 1.0 0.9 - 1.1 [facility] Comment:INTERNATIONAL NORMAL IZED RATIO (INR) REFERENCE [...] BLOOD ORDERABLES Final Result Performing Organization Address [facility] Co de Phone Number [facility] [address] [place] [phone] * (ABNORMAL) Immunoglobulins, Quantitative, IgA, IgG, IgM (11/09/2024 10:39 AM EDT) Pathologist [facility] IMMUNOGLOBULIN G 1274 600 - 1540 mg/dL [facility] IMMUNOGLOBULIN A 458(A) 70 - 320 mg/dL [facility] Immunoglobulin M 106 50 - 300 mg/dL [facility] Comment:THIS TEST WAS PERFOR MED AT:[facility] [place] [id number] GONZALEZ MD Blood Venous blood specimen / Unknown 11/09/2024 10:39 AM EDT 11/09/2024 2:04 PM EDT Ernesto Diallo MD LAB BLOOD ORDERABLES Final Result Performing Organization Address [facility]/ZIP Co de Phone Number [facility] [address] [place] [phone] * Hepatitis B Surface Antibody, Qualitative (11/09/2024 10:39 AM EDT) Pathologist [facility] ~Hepatitis B Surface Antibody NONREACTIVE Nonreactive [facility] Comment:Nonreactive: < 8.00 mIU/mL Blood Venous blood specimen / Unknown 11/09/2024 10:39 AM EDT 11/09/2024 2:04 PM EDT us Ernesto Diallo MD LAB BLOOD ORDERABLES Final Result Performing Organization Address [facility] de Phone Number [facility] [address] [place] [phone] * (ABNORMAL) CBC auto differential (11/01/2024 10:03 AM EDT) Pathologist [facility] White Blood Count 4.5(L) 4.8 - 10.8 X10*3/uL [facility] Red Blood Count 5.00 4.60 - 5.80 X10*6/uL [facility] Hemoglobin 15.2 14.0 - 18.0 g/dl [facility] Hematocrit 45.4 42.0 - 52.0 % [facility] Mean Corpuscular Volume 90.8 80.0 - 98.0 fL [facility] Mean Corpuscular Hemoglobin 30.4 27.0 - 33.0 pg [facility] Mean Corpuscular HGB Conc 33.5 31.0 - 36.0 g/dl [facility] Red Cell Distribution Width 11.4 11.0 - 16.0 % [facility] Platelet Count 201 160 - 400 X10*3/uL [facility] Mean Platelet Volume 11.5 9.4 - 12.4 fL [facility] Neutrophils Percent Auto 47.5 45 - 73 % [facility] Imm Gran Pct Auto 0.4 0.0 - 0.4 % [facility] Lymphocytes Percent Auto 31.4 20 - 40 % [facility] Monocytes Percent Auto 14.5(H) 2 - 11 % [facility] Eosinophils Percent Auto 5.1(H) 0 - 4 % [facility] Basophils Percent Auto 1.1 0 - 2 % [facility] NRBC Pct Auto 0.0 0.0 - 0.2 /100WBC [facility] Neutrophils Absolute Auto 2.1 2.0 - 8.3 x10*3/uL [facility] Imm Gran Abs Auto 0.02 0.00 - 0.03 X10*3/uL [facility] Lymphocytes Absolute Auto 1.4 1.2 - 4.9 X10*3/uL [facility] Monocytes Absolute Auto 0.7 0.1 - 1.2 X10*3/uL [facility] Eosinophils Absolute Auto 0.2 0.0 - 0.4 X10*3/uL [facility] Basophils Absolute Auto 0.1 0.0 - 0.2 X10*3/uL [facility] NRBC Abs Auto 0.000 0.0 - 0.012 X10*3/uL [facility] Blood Venous blood specimen / Unknown 11/01/2024 10:03 AM EDT 11/01/2024 2:03 PM EDT us Ernesto Diallo MD LAB BLOOD ORDERABLES Final Result [facility] [address] [place] [phone] * TSH W/Reflex to FT4 (11/01/2024 10:03 AM EDT) TSH reflex Free T4 1.01 0.32 - 4.0 uIU/mL [facility] Blood Venous blood specimen / Unknown 11/01/2024 10:03 AM EDT 11/01/2024 2:03 PM EDT us Ernesto Diallo MD LAB BLOOD ORDERABLES Final Result Performing Organization Address [facility] Co de Phone Number [facility] [address] [place] [phone] * (ABNORMAL) Lipid Panel, Standard (11/01/2024 10:03 AM EDT) Triglycerides 68 <150 mg/dL [facility] Comment:Desirable Triglyceri de: less than 150 mg/dLBorderline High Triglyceride 150-199 mg/dLHigh Triglyceride: 200-499 mg/dLVery High Triglyceride: greater than or equal to 5OO mg/dL Cholesterol 171 <200 mg/dL [facility] Comment:Desirable Cholestero l: less than 200 mg/dLBorderline High Cholesterol: 200-239 mg/dLHigh Cholesterol: greater than 239 mg/dL LDL Cholesterol Calculated 121(H) <100 mg/dL [facility] Comment:Desirable LDL: less than 100 mg/dLNear Optimal/Above Optimal LDL: 110- 129 mg/dLBorderline High LDL: 130-159 mg/dLHigh LDL: 160-189 mg/dLVery High LDL: greater than or equal to 190 mg/dL HDL Cholesterol 37(L) >40 mg/dL [facility] Comment:Desirable HDL: great er than 40 mg/dL Note: This HDL assay may give artificially low results in patients with liver disease. Blood Venous blood specimen / Unknown 11/01/2024 10:03 AM EDT 11/01/2024 2:03 PM EDT us Ernesto Diallo MD LAB BLOOD ORDERABLES Final Result Performing Organization Address City/[facility]/ZIP Co de Phone Number [facility] [address] [place] [phone] * (ABNORMAL) Comprehensive Metabolic Panel (11/01/2024 10:03 AM EDT) Sodium 142 135 - 145 mmol/L [facility] Potassium 4.2 3.3 - 5.1 mmol/L [facility] Chloride 108 96 - 108 mmol/L [facility] Carbon Dioxide 26 22 - 29 mmol/L [facility] Anion Gap 12 12 - 20 [facility] Urea Nitrogen (BUN) 15 9 - 16 mg/dL [facility] Creatinine, Serum 1.07 0.5 - 1.4 mg/dL [facility] Estimated Glomerular Filt Rate >60 [facility] Comment:Chronic Kidney Disea se: Estimated GFR < 60 mL/min/1.06y8Exmjbw Kidney Disease: Estimated GFR < 15 mL/min/1.73m2 Glucose 94 60 - 115 mg/dL [facility] Calcium 8.9 8.4 - 10.2 mg/dL [facility] Bilirubin, Total 1.5(H) 0.0 - 1.0 mg/dL [facility] Aspartate Amino Transferase 31 5 - 37 U/L [facility] Alanine Aminotransferase 49(H) 0 - 40 U/L [facility] Total Protein 7.3 6.5 - 8.0 g/dL [facility] Albumin Level 4.3 3.5 - 5.0 g/dL [facility] Alkaline Phosphatase 81 39 - 117 U/L [facility] Blood Venous blood specimen / Unknown 11/01/2024 10:03 AM EDT 11/01/2024 2:03 PM EDT us Ernesto Diallo MD LAB BLOOD ORDERABLES Final Result [facility] [address] [place] [phone] [phone] documented in this encounter Visit Diagnoses Diagnosis Essential hypertension- Primary Unspecified essential hypertension Transaminitis Nonspecific elevation of levels of transaminase or lactic acid dehydrogenase (LDH) documented in this encounter Additional Health Concerns Assessment Noted Time PHQ-9 Depression Total Score: 0 06/15/19 25 11:19 AM EST documented as of this encounter Care Teams Electronic Service Technician Relationship Specialty Start Date End Date Ernesto Diallo MD [address] [place] [phone] PCP - General Internal Medicine 07/02/17 documented as of this encounter
--- OUTSIDE RECORDS SUMMARY | 2025-02-28 20:56 | XMS_ITS | Clinical Summary ---
Author Organization [facility] Address [address] [facility] [address] [place] [address] Care Team Providers Care Assortment Planner Name Role Phone Ernesto Diallo MD Primary Care Provider [phone]- [phone] Allergies No known active allergies Medications Heating [...] available. 2 each 2 025 2025 Active diclofenac (Cataflam) 50 MG tabletIndicatio ns:Chronic right-sided low back pain without sciatica Take 1 tablet (50 mg) by mouth 2 times daily. 60 tablet 025 Active lidocaine (Lidoderm) 5 % patchIndication s:Chronic [...] mg) by mouth at bedtime. 90 tablet Active acetaminophen (Tylenol 8 Hour) 650 MG ER tabletIndicatio ns:Chronic right-sided low back pain without sciatica,Sacroi liac joint pain Take 1 tablet (650 mg) by mouth every 8 (eight) hours if needed for mild pain. 90 tablet 3 Active oxyCODONE-aceta minophen (Percocet) 5-325 MG tabletIndicatio ns:Chronic right-sided low back pain without sciatica Take 1 tablet by mouth every 12 (twelve) hours if needed for severe pain. 28 tablet Active hydroCHLOROthia zide 12.5 MG tabletIndicatio ns:Essential hypertension Take 1 tablet (12.5 mg) by mouth Once per day. 30 tablet 11 025 2025 Active tiZANidine (Zanaflex) 4 MG tabletIndicatio ns:Chronic right-sided low back pain without sciatica,Chroni c bilateral low back pain without sciatica TAKE 1 TABLET BY MOUTH EVERY 8 HOURS NEEDED FOR MUSCLE SPASM 30 tablet Active tiZANidine (Zanaflex) 4 MG tabletIndicatio ns:Chronic right-sided low back pain without sciatica,Chroni c bilateral low back pain without sciatica TAKE 1 TABLET BY MOUTH EVERY 8 HOURS NEEDED FOR MUSCLE SPASM 30 tablet 025 2024 Discontinued oxyCODONE-aceta minophen (Percocet) 5-325 MG tabletIndicatio ns:Chronic right-sided low back pain without sciatica Take 1 tablet by mouth every 12 (twelve) hours if needed for severe pain. 28 tablet 025 2024 Discontinued(R eorder (will not trigger notification to Pharmacy)) Active Problems Problem Noted Date Diagnosed Date Long-term current use of opiate analgesic 2024 Essential hypertension 07/11/2022 Sacroiliac joint pain 09/05/2017 Right-sided low back pain without sciatica 02/10 Pain in joint involving lower leg 04/22/2011 Encounters Date Type Department Care Team Description 02/16/2025 Refill [facility] [address] [place] [address] Ernesto Diallo MD Chronic right-sided low back pain without sciatica; Chronic bilateral low back pain without sciatica 02/14/2025 10:45 AM EST Office Visit [facility] [address] [place] [address] Ernesto Diallo MD Sacroiliac joint pain (Primary Dx); Chronic bilateral low back pain without sciatica; Dietary counseling; Exercise counseling; Class 1 obesity due to excess calories with serious comorbidity and body mass index (BMI) of 31.0 to 31.9 in adult; Essential hypertension; Hypercholesterolemia 02/14/2025 Telephone [facility] [address] [place] [address] Ernesto Diallo MD appointment 02/14/2025 Travel 02/10/2025 11:00 AM EDT Clinical Support [facility] [address] [place] [address] Shefali Metcalf RN Chronic bilateral low back pain without sciatica (Primary Dx) 02/10/2025 Travel 02/07/2025 11:15 AM EDT Clinical Support [facility] [address] [place] [address] Mariama Glaser RN Encounter for immunization 02/07/2025 Travel 02/03/2025 Refill [facility] [address] [place] [address] Shefali Metcalf RN Chronic right-sided low back pain without sciatica 02/03/2025 Telephone [facility] [address] [place] [address] Ernesto Diallo MD Med Refill 01/06/2025 Refill [facility] [address] [place], [place] [id number] Ernesto Diallo MD Chronic right-sided low back pain without sciatica 12/06/2024 Orders Only [facility] [address] [place] [address] Ernesto Diallo MD Chronic right-sided low back pain without sciatica; Chronic bilateral low back pain without sciatica; Chronic right-sided low back pain without sciatica; Sacroiliac joint pain; Essential hypertension; Other male erectile dysfunction; Primary insomnia from Last 3 Months Immunizations Immunization Administration Dates Next Due HepB-CpG 02/07/2025 Influenza Injectable Quadriv alant Preservative Free IIV4 [...] Sign Reading Time Taken Comments Blood Pressure 159/81 02/14/2025 10:39 AM EST Pulse 72 02/14/2025 10:39 AM EST Temperature 36.8 C (98.2 F) 10/14/2024 4:04 PM EDT Respiratory Rate 20 02/14/2025 10:39 AM EST Oxygen Saturation 96% 02/14/2025 10:39 AM EST Inhaled Oxygen Concentration - - Weight 97.5 kg (215 lb) 02/14/2025 10:39 AM EST Height 175.3 cm (5' 9 ) 02/14/2025 10:39 AM EST Body Mass Index 31.75 02/14/2025 10:39 AM EST Plan of Treatment Upcoming Encounters Date Type Department Care Team ([facility] st Contact Info) Description 03/07/2025 10:45 AM EST Immunization [facility] [address] [place] [address] 03/07/2025 11:00 AM EST Office Visit [facility] [address] [place] [address] Ernesto Diallo MD [address] [place] [address] 06/02/2025 11:00 AM EST Clinical Support [facility] [address] [place] [address] Shefali Metcalf RN [address] [place] [address] Health Maintenance Due Date Last Done Comments CT Colonography 1955 Colonoscopy 1955 FIT 1955 Sigmoidoscopy 1955 Dental X-Ray: Bitewings 02/18/2014 02/17/2013, 11/19 Dental Oral Exam 10/01/2017 04/01/2017, , 01/25/2014, Additional history exists Dental X-Ray: Full Mouth 10/26/2018 016, 02/17/2013, 11/19/2012 FOBT 08/31/2024 09/01/2023 Zoster Vaccines (2 of 2) 02/19/2025 12/25/2024 Hepatitis B Vaccines (2 of 2 - CpG 2-dose series) 03/07/2025 02/07/2025 Dental Prophylaxis 04/13/2025 10/11/2024, 0 06/08/2015, 06/17/2014, Additional history exists Alcohol/Substance Use Screening 06/14/2025 06/14/2024 Depression Screening 06/14/2025 06/14/2024, 06/15/19 25 SDOH Screening 06/14/2025 06/14/2024 COVID-19 Vaccine ( season) 2026 02/15/2022, 04/27/2021, 09/08/2020, Additional history exists Postponed from 12/13/2024 (Patient Refused) Tobacco Screening 02/14/2026 02/14/2025 Colorectal Cancer Screening 08/31/2026 FIT DNA/Cologuard 08/31/2026 09/01/2023 Lipid Panel 02/28/2030 02/28/2025, 10/13, 09/29/2023, Additional history exists RSV Patients and Patients Aged 60 years or older (1 - 1-dose 75+ series) 2032 DTaP/Tdap/Td Vaccines (2 - Td or Tdap) 08/24/2033 08/25/2023, 11/11/2016, 04/14/2012 Hepatitis C Screening Completed 03/15/2022 Pneumococcal Vaccine: 50+ Years Completed 08/25/2023 Influenza Vaccine Completed 12/25/2024, , 12/10/2022, Additional history exists HIB Vaccines Aged Out No longer eligi [...] Procedure Name Priority Date/Time Associated Diagnosis Comments LIPID PANEL, STANDARD Routine 02/28/2025 10:05 AM EST Hypercholesterolemi a POCT NANCI-14 URINE DRUG SCREEN Routine 02/10/2025 11:00 AM EDT Chronic bilateral low back pain without sciatica US ABDOMEN COMPLETE WITH ELASTOGRAPHY Routine 01/03/2025 8:26 AM EDT Transaminitis Full PROPHYLAXIS - ADULT Routine 10/11/2024 10:00 AM EDT LAB COLOGUARD [...] Recently Relevant to Health Maintenance Results * (ABNORMAL) Lipid Panel, Standard (02/28/2025 10:05 AM EST) Triglycerides 70 <150 mg/dL [facility] Comment:Desirable Triglyceri de: less than 150 mg/dLBorderline High Triglyceride 150-199 mg/dLHigh Triglyceride: 200-499 mg/dLVery High Triglyceride: greater than or equal to 5OO mg/dL Cholesterol 167 <200 mg/dL [facility] Comment:Desirable Cholestero l: less than 200 mg/dLBorderline High Cholesterol: 200-239 mg/dLHigh Cholesterol: greater than 239 mg/dL LDL Cholesterol Calculated 116(H) <100 mg/dL [facility] Comment:Desirable LDL: less than 100 mg/dLNear Optimal/Above Optimal LDL: 110- 129 mg/dLBorderline High LDL: 130-159 mg/dLHigh LDL: 160-189 mg/dLVery High LDL: greater than or equal to 190 mg/dL HDL Cholesterol 37(L) >40 mg/dL [facility] Comment:Desirable HDL: great er than 40 mg/dL Note: This HDL assay may give artificially low results in patients with liver disease. Blood Venous blood specimen / Unknown 02/28/2025 10:05 AM EST 02/28/2025 2:04 PM EST us Ernesto Diallo MD LAB BLOOD ORDERABLES Final Result [facility] [address] [place] [phone] * (ABNORMAL) POCT NANCI-14 Urine Drug Screen (02/10/2025 11:00 AM EDT) THC Negative Negative Cocaine Screen, Urine Negative Negative Opiate Screen, Urine Negative Negative Methamphetamine Screen Urine Negative Negative Amphetamine Screen, Urine Negative Negative Benzodiazepines Screen, Urine Negative Negative Barbiturate Screen, Urine Negative Negative Methadone Screen, Urine Negative Negative Buprenophine Screen, Urine Negative Negative TCA, Urine Negative Negative MDMA Urine Negative Negative ng/mL Oxycodone Screen, Urine Positive(A) Negative Comment:Rx Phencyclidine (PCP), Urine Negative Negative Propoxyphene, Urine Negative Negative Fentanyl, Urine Negative Negative Urine Urine specimen obtained by clean catch procedure / Unknown 02/10/2025 11:00 AM EDT Narrative Shefali Metcalf RN - 02/10/2025 11:00 AM EDT . Internal Pass Control Lot# [id number] Exp: 02-11-26 us Ernesto Diallo MD POINT OF CARE TEST ENTER/ED IT ORDERABLES Final Result * US Abdomen Comp w elastography (01/03/2025 8:26 AM EDT) Anatomical Region Laterality Modality Abdomen Ultrasound 01/03/2025 8:26 AM EDT Narrative 01/03/2025 9:15 AM EDT [place] [address] Ultrasound Report Signed Patient: Demario Ramesh MR#: [id number] 1 : 1955 Acct:[id number] Age/Sex: 69 / M ADM Date: 01/03/25 Loc: HO.US Attending Dr: Ernesto Diallo MD Ordering Physician: Ernesto Diallo MD Date of Service: 01/03/25 Procedure(s): US abdomen comp w elastography Accession Number(s): [id number] cc: Ernesto Diallo MD Reason for Exam: [...] OV> 01/03/25912 DD/ 5 TD/TT: 01/03/25 0846 Credit Review Officer: Procedure Note Donotuseinterpreter, Image - 01/03/[address] [address] Ultrasound Report Signed Patient: Demario Ramesh AMR#: [id number] 1 : 7Acct:[id number] Age/Sex: 69 / MADM Date: 01/03/25 Loc: HO.US Attending Dr: Ernesto Diallo MD Ordering Physician: Ernesto Diallo MD Date of Service: 01/03/25 Procedure(s): US abdomen comp w elastography Accession Number(s): [id number] cc: Ernesto Diallo MD Reason for Exam: [...] MD in OV> 01/03/2513 DD/ 5 TD/TT: 01/03/2546 Credit Review Officer: us Ernesto Diallo MD [facility] US PROCEDURES Edited Re sult - Final * Cologuard?? colon cancer screening (09/01/2023 2:20 PM EDT) Cologuard Result Negative Negative 09/05/19 1:32 AM EDT [facility] (CLIA #:[id number]) Comment: NEGATIVE TEST RESULT. A negative Cologuard [...] Calvillo. et al, N Engl J Med 2014;370(14):1332-0909) The normal value (reference range) for this assay is negative. COLOGUARD RE-SCREENING RECOMMENDATION: Periodic colorectal cancer screening is an important part of preventive healthcare for asymptomatic individuals at average risk for colorectal cancer. Following a negative Cologuard result, the [place] [employer] and U.S. Multi-Society Task Force screening guidelines recommend a Cologuard re-screening interval of 3 years. References: [place] [employer] Guideline for Colorectal Cancer Screening: https://www.cancer.org/cancer/payxp-qyahkg-jnatpx/gwmzywtjl-tgpkgjbwq-pcgpqic/ac s-rec ommendations.html.; Hipolito MAYER, Stewart COHEN, Gayle DesaiK, Colorectal Cancer Screening: Recommendations for Physicians and Patients from the U.S. Multi-Society Task Force on Colorectal Cancer Screening , Am J Gastroenterology 2017; 112:8420-0335. TEST DESCRIPTION: Composite algorithmic analysis of stool [...] screened with both Cologuard and colonoscopy. (Mendel Abel al, N Engl J Med 2014;370(14):4465-0659.) Cologuard may produce a false negative or false positive result (no colorectal cancer or precancerous polyp present at colonoscopy follow up). A negative Cologuard test result does not guarantee the absence of CRC or advanced adenoma (pre-cancer). The current Cologuard screening interval is every 3 years. ([place] [employer] and U.S. Multi-Society Task Force). Cologuard performance data in a 10,000 patient pivotal study using colonoscopy as the reference method can be accessed at the following location: www.[employer]/results. Additional description of the Cologuard test process, warnings and precautions can be found at www.Quintur[employer].com. Stool specimen (specimen) 09/01/2023 2:20 PM EDT 09/02/2023 9:24 AM EDT us Ernesto Diallo MD LAB MOLECULAR DIAGNOSTICS O RDERABLES Final Result [facility] (CLIA #:[id number]) [place] [address], * Hepatitis C Antibody with Reflex to HCV, RNA, Quantitative, Real-Time PCR (03/15/2022 8:57 AM EST) Hepatitis C Antibody NON-REACT LUAN NON-REACT LUAN [employer] [place] [facility] Temperature Management Diagnost Index 0.08 <1.00 [facility] Comment: HCV antibody was non-reactive. There is no laboratory evidence of HCV infection. In most cases, no further action is required. However, if recent HCV exposure is suspected, a test for HCV RNA (test code 29658) is suggested. For additional information please refer to http://education.[employer]/faq/BYL83z3 (This link is being provided for informational/ educational purposes only.) 03/15/2022 8:57 AM EST 03/15/2022 8:58 AM EST Narrative [facility] - 03/15/2022 10:58 PM EST FASTING:YES COLLECTION KIT GIVEN TO PATIENT. PATIENT ADVISED TO RETURN. FASTING: YES us Ernesto Diallo MD LAB BLOOD ORDERABLES Final Result Performing Organization Address City/State/[facility] Co de Phone Number [facility] [address], [place] [address] [employer] [place] [employer] [address], [facility] [place] [address] from Last 3 Months or Most Recently Relevant to Health Maintenance Insurance [facility] [employer] (HMO D-SNP) [place] [id number] DENTAL - [facility] Care Teams Assortment Planner Relationship Specialty Start Date End Date Ernesto Diallo MD [address] [place] [phone] PCP - General Internal Medicine 07/02/17
--- OUTSIDE RECORDS SUMMARY | 2025-02-28 20:56 | XMS_ITS | Encounter Summary ---
Author Organization [facility] Address [address] [facility] 7 [place] [address] Care Team Providers Care Induction Heating Equipment Setter Name Role Phone Ernesto Diallo MD Primary Care Provider [phone] [phone] Encounter Details Date Type Department Care Team ([facility] st Contact Info) Description 12/06/2024 Orders Only [facility] [address] [place], [place] [phone] Ernesto Diallo MD [address] [place] [address] Chronic right-sided low back pain without sciatica; [...] [facility] [address] [place] [address] 03/07/2025 11:00 AM EST Office Visit [facility] [address] [place] [address] Ernesto Diallo MD [address] [place] [address] 06/02/2025 11:00 AM EST Clinical Support [facility] [address] [place] [address] Shefali Metcalf RN [address] [place] [address] documented as of this encounter Visit Diagnoses [...] documented as of this encounter Care Teams Induction Heating Equipment Setter Relationship Specialty Start Date End Date Ernesto Diallo MD [address] [place] [address] PCP - General Internal Medicine 07/02/17 documented as of this encounter
== END 2025-02-28 10:05 | disposition home or self-care (01) ==
LOC: HO.CHCLDS 10:04
PROVIDERS: Visit Provider Internal Medicine
DX: E78.00 Pure hypercholesterolemia, unspecified (principal)
CPT/HCPCS: 36415; 80061